=== PATIENT | female | born 1990 | race Caucasian/White ===

== ENCOUNTER 2016-10-12 15:12 | Emergency (ER) | payer MEDICAID, OTHER ==
[2016-10-12] MEDS ORDERED: MOTRIN 600 MG PO ONE (15:42)
[2016-10-12] MEDS ORDERED: MOTRIN 600 MG ONE (15:46)
--- NOTE | 2016-10-12 15:48 | ERPHSYRPT ---
- History of Present Illness Time Seen by Provider: 10/12/16 15:20 Source: patient, family Physician History: fell off porch injuring her left ankle and foot; no prior injury; no other complaints; right handed Method of Injury: fell, twisted Occurred: just prior to arrival Quality: constant, aching Severity of Pain-Max: severe Severity of Pain-Current: moderate Lower Extremities Pain: foot: left (dorsal latera), ankle: left (lateral) Modifying Factors: Improves With: cold therapy, immobilization, movement ( worsens) Associated Symptoms: unable to bear weight, snapping sensation Allergies/Adverse Reactions: amoxicillin Allergy (Mild, Verified 10/17/15 15:05) Rash Home Medications: [id number]/Omega3/Dha/Fish Oil [ Gummies] 2 each PO DAILY 10/17/15 [ History] Promethazine HCl 25 mg [Phenergan 25 mg] 25 mg PO Q6HPRN PRN 10/17/15 [ History] - Review of Systems Constitutional: No Symptoms Eyes: No Symptoms Ears, Nose, & Throat: No Symptoms Respiratory: No Cough, No Dyspnea, No Wheezing Cardiac: No Chest Pain, No Palpitations, No Syncope Abdominal/Gastrointestinal: No Abdominal Pain, No Nausea, No Vomiting, No Diarrhea Genitourinary Symptoms: No Symptoms Musculoskeletal: Fall, Injury, Joint Pain (left lateral ankle), Joint Swelling ( left ankle), Other (pain and swelling dorsal laterl lef foot ) Skin: No Symptoms Neurological: No Symptoms Psychological: No Symptoms Endocrine: No Symptoms Hematologic/Lymphatic: No Symptoms Immunological/Allergic: No Symptoms - Past Medical History Pertinent Past Medical History: No - Past Surgical History Past Surgical History: No - Social History Smoking Status: Current every day smoker Exposure to second hand smoke: Yes Alcohol Use: Socially Drug Use: none Patient Lives Alone: No Significant Family History: no pertinent family hx - Female History Hx Now: No - Nursing Vital Signs Nursing Vital Signs: Initial Vital Signs Temperature 98.3 F 10/12/16 15:13 Pulse Rate 68 10/12/16 15:13 Respiratory Rate 20 10/12/16 15:13 Blood Pressure 123/62 10/12/16 15:13 O2 Sat by Pulse Oximetry 95 10/12/16 15:13 Pain Scale Pain Intensity 6 - Physical Exam General Appearance: moderate distress (pain left ankle), alert, obese Eyes, Ears, Nose, Throat Exam: normal ENT inspection, TMs normal, pharynx normal , moist mucous membranes Neck Exam: normal inspection, non-tender, supple, full range of motion Cardiovascular/Respiratory Exam: chest non-tender, normal breath sounds, regular rate/rhythm, heart sounds normal, no ecchymosis, no JVD, no M/R/G, no respiratory distress Gastrointestinal/Abdominal Exam: non-tender, soft, no organomegaly Back Exam: normal inspection, normal range of motion, No CVA tenderness, No vertebral tenderness Hips Exam: bilateral: non-tender, normal inspection, normal range of motion, no evidence of injury Legs Exam: bilateral leg: non-tender, normal inspection, normal range of motion , no evidence of injury Knees Exam: bilateral knee: non-tender, normal inspection, normal range of motion, no evidence of injury Ankle Exam: right ankle: non-tender, normal inspection, normal range of motion, no evidence of injury, left ankle: bone tenderness (latral malleolus), limited range of motion, pain, soft tissue tenderness (lateral), swelling (lateral) Foot Exam: right foot: non-tender, normal inspection, normal range of motion, no evidence of injury, left foot: bone tenderness (dorsal latral), pain (dorsal latral), soft tissue tenderness (dorsal latral), swelling (dorsal latral) DTR - Lower Extremities Exam: knee (R): 4+, knee (L): 4+ Neuro/Tendon Exam: normal sensation, normal motor functions, normal tendon functions, responds to pain, no evidence tendon injury Mental Status Exam: alert, oriented x 3, cooperative Skin Exam: normal color, warm, dry, No rash Procedures - Splinting Location of Splint: Left, Ankle Type of Splint: Air Cast Splint Applied By: ED Nurse Pre-Proc Neuro Vasc Exam: normal Post-Proc Neuro Vasc Exam: neurovascular intact - Course Nursing assessment & vital signs reviewed: Yes - Radiology Exams Left Ankle X-ray Interpretation: Interpreted by me, Negative, No Fracture Left Foot X-ray Interpretation: Interpreted by me, Negative, No Fracture Ordered Tests: Active Orders 24 hr Category Date Time Status Crutches STAT Care 10/12/16 16:35 Ordered Re-Check Vital Signs STAT Care 10/12/16 15:42 Active Splint STAT Care 10/12/16 16:35 Ordered ANKLE (3 VIEWS) Stat Exams 10/12/16 15:42 Taken FOOT (MINIMUM 3 VIEWS) Stat Exams 10/12/16 15:42 Taken Medication Summary Discontinued Medications Generic Name Dose Route Start Last Admin Trade Name Shmuel PRN Reason Stop Dose Admin Ibuprofen 600 mg 10/12/16 15:42 10/12/16 15:55 Motrin 600 Mg PO 10/12/16 15:43 600 mg STAT ONE Administration Ibuprofen Confirm 10/12/16 15:46 Motrin 600 Mg Administered 10/12/16 15:47 Dose 600 mg .ROUTE .STK-MED ONE - Progress Progress: improved (after meds and xr), re-examined (after meds and xr) Progress Note: 10/12/16 15:52 xrr pending; meds and ice given; will recheck 10/12/16 16:36 recheck after meds and xr; discussed xr findings and treatment plan; air cast and crutches applies; no NV compromise after; instructions given Counseled pt/family regarding: diagnosis, need for follow-up, rad results, smoking cessation - Departure Time of Disposition: 16:37 Departure Disposition: Home Clinical Impression: Sprain of ankle, left Condition: Stable Critical Care Time: No Instructions: Foot Pain, Ankle Sprain Additional Instructions: RICE; use air cast and crutches for 2-3 days; no wt bearing 48 hours; Acute Sprain Instructions lower extremity; R.I.C.E.; wear splint/immobilyzer as directed; observe for neuro-vascular compromise ( change in color; increased pain; cold to touch); Use crutches, walker, cane as directed. FU LMD/ specialist as directed; call for appointment as directed; Return if problems; Take meds as prescribed. Follow-up with family doctor as directed. Call for appointment. Return if any problems. If you smoke please stop. Call or follow up with your family doctor for assistance if you need it to stop. Please wear your seatbelt when driving. Have a nice day. Thank you for allowing us to participate in your care today. :o) Dr Demetrius Lal Prescriptions: Naproxen Sodium [Anaprox Ds] 550 mg PO Q8H PRN PRN #14 tablet PRN Reason: Pain
[2016-10-12 16:27] VITALS: BP 110/46; PULSE 80; O2SAT 97
--- NOTE | 2016-10-12 17:02 | XRAY ---
Indication: Lateral pain following twisting injury. Comparison: None 3 views of the left ankle demonstrates minimal lateral soft tissue swelling. No other bony, articular, or soft tissue abnormalities.
--- NOTE | 2016-10-12 17:04 | XRAY ---
Indication: Lateral pain following twisting injury. Comparison: None 3 nonweightbearing views of the left foot demonstrates talonavicular accessory ossicle. No other bony, articular, or soft tissue abnormalities.
== END 2016-10-12 17:27 | disposition home or self-care (01) ==
LOC: ED 15:12
DX: S93.402A Sprain of unspecified ligament of left ankle, initial encounter (principal); W18.30XA Fall on same level, unspecified, initial encounter; X50.0XXA Overexertion from strenuous movement or load, initial encounter
CPT/HCPCS: 73610; 73630; 99282; 99283; A9270-GY

== ENCOUNTER 2016-10-30 08:06 | Emergency (ER) | payer OTHER ==
[2016-10-30] MEDS ORDERED: Hydromorphone 1 mg/ml Ampule IV ONE (08:26)
[2016-10-30] MEDS ORDERED: TORAdol 30 mg Injection IV ONE (08:26)
[2016-10-30] MEDS ORDERED: Sodium Chloride 0.9% 1000 ML 1,000 ML IV STA (08:26)
[2016-10-30] MEDS ORDERED: Phenergan 25 MG INJ IV ONE (08:26)
[2016-10-30] MEDS ORDERED: Flomax 0.4 MG PO STA (08:28)
--- NOTE | 2016-10-30 08:29 | ERPHSYRPT ---
- History of Present Illness Time Seen by Provider: 10/30/16 08:21 Source: patient Exam Limitations: no limitations Patient Subjective Stated Complaint: yesterday she bent over to orange picker baby and heard a pop and no has lower back that radiates to right side, no radiation to ext, is unale to void this morning, no bruning or fever Triage Nursing Assessment: pt walked in slowly,crying and grimacing, resp easy, skin w/d,no edema noted alert Physician History: The patient is a 26-year-old female who presents with left lower back and left flank pain. She had some mild discomfort that began 3 days ago in this area. Yesterday the pain became significantly worse when she picked up her infant. She's never had back pain before. She denies kidney stones. This morning her back pain is still intensely painful. She is unable to urinate. She denies nausea, vomiting, diarrhea. Her past medical history is significant for C- section. Timing/Duration: day(s) (3) Method of Injury: unknown Quality: stabbing Back Pain Location: lumbar spine Severity of Pain-Max: severe Severity of Pain-Current: severe Modifying Factors: Improves With: nothing Associated Symptoms: problems urinating Previous symptoms: no prior history Allergies/Adverse Reactions: amoxicillin Allergy (Mild, Verified 10/30/16 08:17) Rash Home Medications: No Reportable Medications [No Reported Medications] 10/30/16 [History] Hx Tetanus, Diphtheria Vaccination/Date Given: Yes Hx Influenza Vaccination/Date Given: Yes Hx Pneumococcal Vaccination/Date Given: No Immunizations Up to Date: Yes - Review of Systems Constitutional: No Fever, No Chills Eyes: No Symptoms Ears, Nose, & Throat: No Symptoms Respiratory: No Cough, No Dyspnea Cardiac: No Chest Pain, No Edema, No Syncope Abdominal/Gastrointestinal: No Abdominal Pain, No Nausea, No Vomiting, No Diarrhea Genitourinary Symptoms: Hesitancy Musculoskeletal: Back Pain, No Neck Pain Skin: No Rash Neurological: No Dizziness, No Focal Weakness, No Sensory Changes Psychological: No Symptoms Endocrine: No Symptoms Hematologic/Lymphatic: No Symptoms Immunological/Allergic: No Symptoms All Other Systems: Reviewed and Negative - Past Medical History Pertinent Past Medical History: No Neurological History: No Pertinent History ENT History: No Pertinent History Cardiac History: No Pertinent History Respiratory History: No Pertinent History Endocrine Medical History: No Pertinent History Musculoskeletal History: No Pertinent History, Fractures GI Medical History: No Pertinent History History: No Pertinent History Female Reproductive Disorders: No Pertinent History - Past Surgical History Past Surgical History: Yes Female Surgical History: Section - Social History Smoking Status: Current every day smoker How long have you smoked: 15 Exposure to second hand smoke: Yes Alcohol Use: Socially Drug Use: none Patient Lives Alone: No Significant Family History: no pertinent family hx - Female History Hx Last Menstrual Period: september Hx Now: No - Nursing Vital Signs Nursing Vital Signs: Initial Vital Signs Temperature 98.2 F 10/30/16 08:11 Respiratory Rate 18 10/30/16 08:11 Blood Pressure 147/79 10/30/16 08:11 O2 Sat by Pulse Oximetry 94 L 10/30/16 08:11 Pain Scale Pain Intensity [Back] 10 Pain Intensity 6 - Physical Exam General Appearance: moderate distress, other (tearful) Eye Exam: PERRL/EOMI, eyes nml inspection Ears, Nose, Throat Exam: normal ENT inspection Neck Exam: normal inspection, non-tender, supple, full range of motion, No meningismus, No midline tenderness Respiratory Exam: normal breath sounds, lungs clear, No respiratory distress Cardiovascular Exam: regular rate/rhythm, normal heart sounds Gastrointestinal Exam: soft, No tenderness, No mass Pelvic Exam: not done Rectal Exam: not done Back Exam: CVA tenderness (left) Extremity Exam: normal inspection, normal range of motion, No calf tenderness, No pedal edema Neurologic Exam: alert, oriented x 3, cooperative, baseball pitcher II-XII nml as tested, normal mood/affect, nml station & gait, sensation nml, No motor deficits Skin Exam: normal color, warm, dry, No rash SpO2 Interpretation: normal SpO2: 94 Oxygen Delivery: Room Air - CT Exams Abdomen/Pelvis CT Interpretation: Tele-radiologist Report, No appendicitis, Other (scatteredf small mesenteric nodes, possible adenitis per DR Field.) Ordered Tests: Active Orders 24 hr Category Date Time Status IV Insertion STAT Care 10/30/16 08:26 Active ABDOMEN AND PELVIS W/0 CONTRAS [CT] Stat Exams 10/30/16 10:06 Completed CBC W DIFF Stat Lab 10/30/16 08:10 Completed CMP Stat Lab 10/30/16 08:10 Completed CULTURE,URINE Stat Lab 10/30/16 09:25 Received HCG QUALITATIVE,SERUM Stat Lab 10/30/16 08:10 Completed LIPASE Stat Lab 10/30/16 08:10 Completed UA W/ MICROSCOPIC Stat Lab 10/30/16 09:25 Completed Urine Triage Profile Stat Lab 10/30/16 08:26 Completed Medication Summary Discontinued Medications Generic Name Dose Route Start Last Admin Trade Name Shmuel PRN Reason Stop Dose Admin Hydromorphone HCl 1 mg 10/30/16 08:26 10/30/16 08:37 Hydromorphone 1 Mg/Ml Ampule IV 10/30/16 08:27 1 mg STAT ONE Administration Hydromorphone HCl Confirm 10/30/16 08:32 Hydromorphone 1 Mg/Ml Ampule Administered 10/30/16 08:33 Dose 1 mg .ROUTE .STK-MED ONE Sodium Chloride 1,000 mls @ 999 mls/hr 10/30/16 08:26 10/30/16 08:33 Sodium Chloride 0.9% 1000 Ml IV 10/30/16 09:26 999 mls/hr .Q1H1M STA Administration Sodium Chloride Confirm 10/30/16 08:32 Sodium Chloride 0.9% 1000 Ml Administered 10/30/16 08:33 Dose 1,000 mls @ ud .ROUTE .STK-MED ONE Ketorolac Tromethamine 30 mg 10/30/16 08:26 10/30/16 08:36 Toradol 30 Mg Injection IV 10/30/16 08:27 30 mg STAT ONE Administration Ketorolac Tromethamine Confirm 10/30/16 08:31 Toradol 30 Mg Injection Administered 10/30/16 08:32 Dose 30 mg .ROUTE .STK-MED ONE Promethazine HCl 25 mg 10/30/16 08:26 10/30/16 08:36 Phenergan 25 Mg Inj IV 10/30/16 08:27 25 mg STAT ONE Administration Promethazine HCl Confirm 10/30/16 08:31 Phenergan 25 Mg Inj Administered 10/30/16 08:32 Dose 25 mg .ROUTE .STK-MED ONE Tamsulosin HCl 0.4 mg 10/30/16 08:28 10/30/16 08:33 Flomax 0.4 Mg PO 10/30/16 08:29 0.4 mg DAILY STA Administration Tamsulosin HCl Confirm 10/30/16 08:31 Flomax 0.4 Mg Administered 10/30/16 08:32 Dose 0.4 mg .ROUTE .K-MED ONE Lab/Rad Data: Laboratory Result Diagrams 10/30/16 08:10 10/30/16 08:10 Laboratory Results 10/30/16 10/30/16 10/30/16 Range/Units 09:25 08:26 08:10 WBC (4.0-10.5) K/mm3 RBC (4.1-5.4) M/mm3 Hgb (12.0-16.0) gm/dl Hct (35-47) % MCV (78-100) fl MCH (26-32) pg MCHC (32-36) g/dl RDW (11.5-14.0) % Plt Count (150-450) K/mm3 MPV (6-9.5) fl Gran % (36.0-66.0) % Lymphocytes % (24.0-44.0) % Monocytes % (0.0-12.0) % Eosinophils % (0.00-5.0) % Basophils % (0.0-0.4) % Basophils # (0-0.4) Sodium (136-145) mEq/L Potassium (3.5-5.1) mEq/L Chloride (98-107) mEq/L Carbon Dioxide (21-32) mEq/L Anion Gap (5-15) MEQ/L BUN (9-20) mg/dL Creatinine (0.55-1.30) mg/dl Estimated GFR ML/MIN Glucose (70-110) MG/DL Calcium (8.5-10.1) mg/dL Total Bilirubin (0.2-1.0) mg/dL AST (15-37) U/L ALT (12-78) U/L Alkaline Phosphatase (46-116) U/L Serum Total Protein (6.4-8.2) gm/dL Albumin (3.4-5.0) g/dL Lipase (73-393) U/L Serum , Qual NEGATIVE (Negative) Ur Collection Type VOID Urine Color YELLOW (YELLOW) Urine Appearance HAZY (CLEAR) Urine pH 5.0 (5-6) Ur Specific [place] 1.010 (1.005-1.025) Urine Protein NEGATIVE (Negative) Urine Ketones NEGATIVE (NEGATIVE) Urine Blood NEGATIVE (0-5) [place]/ul Urine Nitrite NEGATIVE (NEGATIVE) Urine Bilirubin NEGATIVE (NEGATIVE) Urine Urobilinogen NORMAL (0-1) mg/dL Ur Leukocyte Esterase 1+ (NEGATIVE) Urine Microscopic WBC 5-10 (0-5) /HPF Ur Epithelial Cells MANY (FEW) /HPF Urine Bacteria MODERATE (NEGATIVE) /HPF Urine Glucose NEGATIVE (NEGATIVE) mg/dL Urine Opiates Level NEG. (NEGATIVE) Ur Methadone NEG. (NEGATIVE) Urine Barbiturates NEG. (NEGATIVE) Ur Phencyclidine (PCP) NEG. (NEGATIVE) Urine Amphetamine NEG. (NEGATIVE) U Benzodiazepine Level NEG. (NEGATIVE) Urine Cocaine NEG. (NEGATIVE) Urine Marijuana (THC) NEG. (NEGATIVE) Specimen Received 10/30/16 0910/30/16 10/30/16 Range/Units 08:10 08:10 WBC 9.8 (4.0-10.5) K/mm3 RBC 4.93 (4.1-5.4) M/mm3 Hgb 14.5 (12.0-16.0) gm/dl Hct 43.2 (35-47) % MCV 87.6 (78-100) fl MCH 29.4 (26-32) pg MCHC 33.6 (32-36) g/dl RDW 13.8 (11.5-14.0) % Plt Count 326 (150-450) K/mm3 MPV 9.6 H (6-9.5) fl Gran % 54.6 (36.0-66.0) % Lymphocytes % 36.4 (24.0-44.0) % Monocytes % 7.4 (0.0-12.0) % Eosinophils % 1.4 (0.00-5.0) % Basophils % 0.2 (0.0-0.4) % Basophils # 0.02 (0-0.4) Sodium 138 (136-145) mEq/L Potassium 4.0 (3.5-5.1) mEq/L Chloride 106 (98-107) mEq/L Carbon Dioxide 21.7 (21-32) mEq/L Anion Gap 14.7 (5-15) MEQ/L BUN 13 (9-20) mg/dL Creatinine 0.89 (0.55-1.30) mg/dl Estimated GFR > 60 ML/MIN Glucose 105 (70-110) MG/DL Calcium 8.7 (8.5-10.1) mg/dL Total Bilirubin 0.30 (0.2-1.0) mg/dL AST 25 (15-37) U/L ALT 55 (12-78) U/L Alkaline Phosphatase 37 L (46-116) U/L Serum Total Protein 7.6 (6.4-8.2) gm/dL Albumin 3.8 (3.4-5.0) g/dL Lipase 422 H (73-393) U/L Serum , Qual (Negative) Ur Collection Type Urine Color (YELLOW) Urine Appearance (CLEAR) Urine pH (5-6) Ur Specific [place] (1.005-1.025) Urine Protein (Negative) Urine Ketones (NEGATIVE) Urine Blood (0-5) [place]/ul Urine Nitrite (NEGATIVE) Urine Bilirubin (NEGATIVE) Urine Urobilinogen (0-1) mg/dL Ur Leukocyte Esterase (NEGATIVE) Urine Microscopic WBC (0-5) /HPF Ur Epithelial Cells (FEW) /HPF Urine Bacteria (NEGATIVE) /HPF Urine Glucose (NEGATIVE) mg/dL Urine Opiates Level (NEGATIVE) Ur Methadone (NEGATIVE) Urine Barbiturates (NEGATIVE) Ur Phencyclidine (PCP) (NEGATIVE) Urine Amphetamine (NEGATIVE) U Benzodiazepine Level (NEGATIVE) Urine Cocaine (NEGATIVE) Urine Marijuana (THC) (NEGATIVE) Specimen Received - Progress Progress: improved Counseled pt/family regarding: lab results, diagnosis, rad results - Departure Time of Disposition: 11:43 Departure Disposition: Home Clinical Impression: Abdominal pain, Lymphadenitis Condition: Stable Critical Care Time: No Additional Instructions: You have abdominal pain. A CT scan of the abdomen showed some small enlarged mesenteric lymph nodes. Laboratory results showed a mildly elevated lipase that may indicate mild pancreatitis. You were given Dilaudid 1 mg, Toradol 30 mg, Phenergan 25 mg, and fluids by IV in the ER. You are also given Flomax 0.4 mg. Over the next 1-2 days, consume only liquids for a diet. Then slowly advance the diet. If you have worsening abdominal pain, do not hesitate to see her local doctor or return to the ER. Take Tylenol and ibuprofen for pain.
[2016-10-30] MEDS ORDERED: Phenergan 25 MG INJ ONE (08:31)
[2016-10-30] MEDS ORDERED: TORAdol 30 mg Injection ONE (08:31)
[2016-10-30] MEDS ORDERED: Flomax 0.4 MG ONE (08:31)
[2016-10-30] MEDS ORDERED: Sodium Chloride 0.9% 1000 ML 1,000 ML ONE (08:32)
[2016-10-30] MEDS ORDERED: Hydromorphone 1 mg/ml Ampule ONE (08:32)
[2016-10-30 08:49] LABS: BASOPHIL % 0.2 % (0.0-0.4); Eosinophil % 1.4 % (0.00-5.0); Granulocytes % 54.6 % (36.0-66.0); Lymphocytes % 36.4 % (24.0-44.0); Mean Cell Volume 87.6 fl (78-100); Mean Corpuscular Hemoglobin 29.4 pg (26-32); Mean Platelet Volume 9.6 fl (6-9.5); Monocytes % 7.4 % (0.0-12.0); Platelet Count 326 K/mm3 (150-450); Red Blood Count 4.93 M/mm3 (4.1-5.4); Red Cell Distribution Width 13.8 % (11.5-14.0); White Blood Count 9.8 K/mm3 (4.0-10.5)
[2016-10-30 09:14] LABS: ALBUMIN 3.8 g/dL (3.4-5.0); ALKALINE PHOSPHATASE 37 U/L (46-116); ANION GAP 14.7 MEQ/L (5-15); BLOOD UREA NITROGEN 13 mg/dL (9-20); CHLORIDE 106 mEq/L (98-107); Carbon Dioxide 21.7 mEq/L (21-32); Glucose 105 MG/DL (70-110); LIPASE 422 U/L (73-393); SGOT/AST 25 U/L (15-37); SGPT/ALT 55 U/L (12-78); SODIUM 138 mEq/L (136-145); Total Protein 7.6 gm/dL (6.4-8.2)
[2016-10-30 09:48] LABS: ADD URINE CULTURE? YES (NO); Bacteria MODERATE /HPF (NEGATIVE); Bilirubin NEGATIVE (NEGATIVE); Blood NEGATIVE Ery/ul (0-5); COMPLETE URINE MICROSCOPIC? YES; Collection Type VOID; Epithelial Cells MANY /HPF (FEW); Glucose NEGATIVE (NEGATIVE); Leukocyte Esterase 1+ (NEGATIVE)
--- NOTE | 2016-10-30 10:37 | XRAY ---
Indication: Bilateral kidney pain. Multiple contiguous axial images obtained through the abdomen and pelvis without contrast as ordered. Comparison: None Lung bases demonstrates mild bibasilar dependent atelectasis. Heart is not enlarged. Small hiatal hernia. Noncontrasted stomach and bowel loops appear nonobstructed. Normal appendix. No free fluid/air. Scattered subcentimeter mesenteric nodes, possible adenitis. Remaining liver, gallbladder, pancreas, spleen, adrenal glands, kidneys, ureters, bladder, uterus, and aorta appear unremarkable for noncontrast exam. Osseous structures intact. Impression: Small hiatal hernia. Scattered small mesenteric nodes, possible adenitis. Remaining CT abdomen/pelvis without contrast exam is negative. CT DI 23.26
[2016-10-30 12:32] VITALS: BP 98/69; PULSE 70; O2SAT 98
== END 2016-10-30 12:10 | disposition home or self-care (01) ==
LOC: ED 08:06
DX: R10.9 Unspecified abdominal pain (principal); I88.9 Nonspecific lymphadenitis, unspecified; M54.5 Low back pain
CPT/HCPCS: 36000; 36415; 74176; 80053; 80307; 81000; 83690; 84703; 85025; 87086; 96360; 96361; 96374; 96375; 99284; J1170; J1885; J2550; A9270-GY

== ENCOUNTER 2017-11-23 20:53 | Emergency (ER) | payer OTHER ==
--- NOTE | 2017-11-23 21:28 | ERPHSYRPT ---
- History of Present Illness Time Seen by Provider: 11/23/17 21:10 Source: patient Exam Limitations: no limitations Patient Subjective Stated Complaint: pain in lower medial back that feels like fire Triage Nursing Assessment: Pt c/o of pain in lower medial back that feels like fire when touched and occasional radiation to bilateral sides, pain with movement, no difficulties with strength, denies any numbness or tingling, BP 149 /103, denies any injury, appears to be in significant pain Physician History: 27 y/o obese white female presents with lumbar back pain described as sharp and burning. very localized. pt denies injury. pt has not had a lmp in last month or two but tests have been negative. pt denies loss of sensation denies loss of bowel or bladder control. no radiation of pain. Timing/Duration: week(s) (over 4 weeks) Method of Injury: other (no injury) Back Pain Location: lumbar spine Severity of Pain-Max: moderate Severity of Pain-Current: moderate (whien pressing) Associated Symptoms: lower back pain, No fever, No chills, No nausea, No vomiting Previous symptoms: same symptoms as today Allergies/Adverse Reactions: amoxicillin Allergy (Mild, Verified 11/23/17 21:15) Rash Hx Tetanus, Diphtheria Vaccination/Date Given: Yes Hx Influenza Vaccination/Date Given: Yes Hx Pneumococcal Vaccination/Date Given: No - Review of Systems Constitutional: No Symptoms, No Fever, No Chills Eyes: No Symptoms, No Eye Pain Ears, Nose, & Throat: No Symptoms, No Ear Pain Respiratory: No Symptoms, No Cough, No Dyspnea, No Stridor, No Wheezing Cardiac: No Symptoms, No Chest Pain Abdominal/Gastrointestinal: No Symptoms, No Abdominal Pain, No Nausea, No Vomiting, No Diarrhea Genitourinary Symptoms: No Symptoms, No Dysuria, No Frequency, No Hematuria Musculoskeletal: Back Pain, No Deformity, No Injury Skin: No Symptoms Neurological: Gait Changes, No Paralysis, No Parasthesia Psychological: No Symptoms Endocrine: No Symptoms Hematologic/Lymphatic: No Symptoms Immunological/Allergic: No Symptoms All Other Systems: Reviewed and Negative - Past Medical History Pertinent Past Medical History: No Neurological History: No Pertinent History ENT History: No Pertinent History Cardiac History: No Pertinent History Respiratory History: No Pertinent History Endocrine Medical History: No Pertinent History Musculoskeletal History: No Pertinent History, Fractures GI Medical History: No Pertinent History History: No Pertinent History Psycho-Social History: No Pertinent History Female Reproductive Disorders: No Pertinent History - Past Surgical History Past Surgical History: Yes Female Surgical History: Section - Social History Smoking Status: Current every day smoker How long have you smoked: 15 Exposure to second hand smoke: Yes Alcohol Use: Socially Drug Use: none Patient Lives Alone: No Significant Family History: no pertinent family hx - Female History Hx Last Menstrual Period: 10/06/2017 Hx Now: (unsure) - Nursing Vital Signs Nursing Vital Signs: Initial Vital Signs Temperature 98.2 F 11/23/17 21:01 Pulse Rate 89 11/23/17 21:01 Blood Pressure 149/103 11/23/17 21:01 O2 Sat by Pulse Oximetry 96 11/23/17 21:01 Pain Scale Pain Intensity 8 - Physical Exam General Appearance: mild distress, alert, anxiety Eye Exam: PERRL/EOMI, eyes nml inspection Ears, Nose, Throat Exam: normal ENT inspection Neck Exam: normal inspection, non-tender, supple, full range of motion Respiratory Exam: normal breath sounds, lungs clear, airway intact, No chest tenderness, No respiratory distress Cardiovascular Exam: regular rate/rhythm, normal heart sounds, normal peripheral pulses Gastrointestinal Exam: soft, normal bowel sounds, No tenderness, No guarding, No rebound Pelvic Exam: not done Back Exam: normal inspection, vertebral tenderness, decreased range of motion, point tenderness (localized upper lumbar) Extremity Exam: normal inspection, normal range of motion, pelvis stable Neurologic Exam: alert, oriented x 3, cooperative, projection engineer II-XII nml as tested, No motor deficits, No sensory deficit, No disoriented, No confusion Skin Exam: normal color, warm, dry Lymphatic Exam: No adenopathy SpO2 Interpretation: normal SpO2: 96 Oxygen Delivery: Room Air - Course Nursing assessment & vital signs reviewed: Yes - Progress Progress: improved - Departure Departure Disposition: Home Clinical Impression: Back pain Condition: Stable Critical Care Time: No Referrals: CHRISTINA WOO MD [Primary Care Provider] - Additional Instructions: follow up with primary doctor for further management. take medications as prescribed. add tylenol for pain Prescriptions: Carisoprodol 350 mg [Soma 350 mg] 350 mg PO Q8H PRN PRN #10 tablet PRN Reason: Muscle Spasms Prednisone 10 mg [Deltasone 10 mg] 10 mg PO TID #12 tablet Tramadol HCl 50 mg [Ultram 50 mg] 50 mg PO TID PRN #15 tablet PRN Reason: Moderate Pain
[2017-11-23] MEDS ORDERED: VALIUM 10 MG/2 ML SYRINGE IM ONE (21:40)
[2017-11-23] MEDS ORDERED: solu-MEDROL 125 MG IM ONE (21:40)
[2017-11-23] MEDS ORDERED: solu-MEDROL 125 MG ONE (21:48)
[2017-11-23] MEDS ORDERED: Ativan 2 MG/1 ML VIAL ONE (21:58)
[2017-11-23] MEDS ORDERED: Ativan 2 MG/1 ML VIAL IM ONE (22:20)
[2017-11-23 22:21] LABS: Appearance CLEAR (CLEAR); Bilirubin NEGATIVE (NEGATIVE); Blood NEGATIVE Ery/ul (0-5); Glucose NEGATIVE (NEGATIVE); Ketones NEGATIVE (NEGATIVE); Leukocyte Esterase NEGATIVE (NEGATIVE); Nitrite NEGATIVE (NEGATIVE); Ph 7.5 (5-6); Protein,Urine Dip NEGATIVE (Negative); Specific Gravity 1.015 (1.005-1.025); Urobilinogen NORMAL mg/dL (0-1)
[2017-11-23 22:31] VITALS: BP 136/88; PULSE 72; O2SAT 97
== END 2017-11-23 22:31 | disposition home or self-care (01) ==
LOC: ED 20:53
DX: M54.5 Low back pain (principal)
CPT/HCPCS: 81002; 84703; 96372; 99284; J2060; J2930

== ENCOUNTER 2018-03-23 23:25 | Emergency (ER) | payer MEDICAID, OTHER ==
--- NOTE | 2018-03-23 23:50 | ERPHSYRPT ---
- History of Present Illness Time Seen by Provider: 03/23/18 23:45 Source: patient, family Patient Subjective Stated Complaint: pt is alert and oriented. pt is ambulatory. pt states she took a test tonight that came back positive. she states that she has had some lower pelvic cramping and had a small amount of pink spotting this morning. Triage Nursing Assessment: see above Physician History: 27 y/o white female, who admittedly has abnl menstrual periods, presents with a h/o no menstrual period for 2 months. pt had some light, resolved spotting this am and mild suprapubic cramping this evening. no n/v/d. pt took several tests and they were positive. Timing/Duration: today Activites at Onset: none Quality: cramping (mild) Onset Location: suprapubic Pain Radiation: none Severity of Pain-Max: mild Severity of Pain-Current: mild Modifying Factors: Improves With: nothing Associated Symptoms: vaginal discharge (earlier this am) Allergies/Adverse Reactions: amoxicillin Allergy (Mild, Verified 11/23/17 21:15) Rash Hx Tetanus, Diphtheria Vaccination/Date Given: Yes Hx Influenza Vaccination/Date Given: No Hx Pneumococcal Vaccination/Date Given: No - Review of Systems Constitutional: No Symptoms Eyes: No Symptoms Ears, Nose, & Throat: No Symptoms Respiratory: No Symptoms Cardiac: No Symptoms Abdominal/Gastrointestinal: Abdominal Pain (mild suprapubic cramping) Genitourinary Symptoms: Vaginal Bleeding (light pink, resolved) Musculoskeletal: No Symptoms Skin: No Symptoms Neurological: No Symptoms Psychological: No Symptoms Endocrine: No Symptoms Hematologic/Lymphatic: No Symptoms Immunological/Allergic: No Symptoms All Other Systems: Reviewed and Negative - Past Medical History Pertinent Past Medical History: No Neurological History: No Pertinent History ENT History: No Pertinent History Cardiac History: No Pertinent History Respiratory History: No Pertinent History Endocrine Medical History: No Pertinent History Musculoskeletal History: No Pertinent History, Fractures GI Medical History: No Pertinent History History: No Pertinent History Psycho-Social History: No Pertinent History Female Reproductive Disorders: No Pertinent History Other Medical History: preeclampsia - Past Surgical History Past Surgical History: Yes Neuro Surgical History: No Pertinent History Cardiac: No Pertinent History Respiratory: No Pertinent History Gastrointestinal: No Pertinent History Genitourinary: No Pertinent History Musculoskeletal: No Pertinent History Female Surgical History: Section - Social History Smoking Status: Current every day smoker How long have you smoked: 16 years Exposure to second hand smoke: Yes Alcohol Use: Socially Drug Use: none Patient Lives Alone: No Significant Family History: no pertinent family hx - Female History Hx Last Menstrual Period: 01/21/18 Hx Now: Yes - Nursing Vital Signs Nursing Vital Signs: Initial Vital Signs Temperature 98.4 F 03/23/18 23:34 Pulse Rate 92 H 03/23/18 23:34 Respiratory Rate 16 03/23/18 23:34 Blood Pressure 125/92 03/23/18 23:34 O2 Sat by Pulse Oximetry 97 03/23/18 23:34 Pain Scale Pain Intensity 5 - Physical Exam General Appearance: no apparent distress, alert, anxiety Eye Exam: PERRL/EOMI, eyes nml inspection Ears, Nose, Throat Exam: normal ENT inspection, moist mucous membranes Neck Exam: normal inspection, non-tender, supple, full range of motion Respiratory Exam: normal breath sounds, lungs clear, airway intact, No chest tenderness, No respiratory distress, No accessory muscle use, No rhonchi, No wheezing, No stridor Cardiovascular Exam: regular rate/rhythm, normal heart sounds, normal peripheral pulses Gastrointestinal/Abdomen Exam: soft, normal bowel sounds (no sig pain at this time), No tenderness, No guarding, No rebound Pelvic Exam: adnexal mass Rectal Exam: not done Back Exam: normal inspection, normal range of motion, No CVA tenderness, No vertebral tenderness Extremity Exam: normal inspection, normal range of motion, pelvis stable Neurologic Exam: alert, oriented x 3, cooperative, import manager II-XII nml as tested Skin Exam: normal color, warm, dry Lymphatic Exam: No adenopathy SpO2 Interpretation: normal SpO2: 97 Oxygen Delivery: Room Air - Course Nursing assessment & vital signs reviewed: Yes Ordered Tests: Active Orders 24 hr Category Date Time Status CBC W DIFF Stat Lab 03/23/18 00:07 Completed HCG, Quantitative (Inhouse) Stat Lab 03/23/18 00:07 Completed HCG,QUALITATIVE URINE Stat Lab 03/23/18 00:00 Completed UA W/RFX UR CULTURE Stat Lab 03/23/18 00:00 Completed Lab/Rad Data: Laboratory Result Diagrams 03/23/18 00:07 Laboratory Results 03/23/18 03/23/18 03/23/18 Range/Units 00:07 00:07 00:00 WBC 13.6 H (4.0-10.5) K/mm3 RBC 4.67 (4.1-5.4) M/mm3 Hgb 14.5 (12.0-16.0) gm/dl Hct 42.6 (35-47) % MCV 91.2 (78-100) fl MCH 31.0 (26-32) pg MCHC 34.0 (32-36) g/dl RDW 13.3 (11.5-14.0) % Plt Count 331 (150-450) K/mm3 MPV 8.9 (6-9.5) fl Gran % 57.1 (36.0-66.0) % Eos # (Auto) 0.13 (0-0.5) Absolute Lymphs (auto) 4.70 H (1.0-4.6) Absolute Monos (auto) 0.98 (0.0-1.3) Lymphocytes % 34.5 (24.0-44.0) % Monocytes % 7.2 (0.0-12.0) % Eosinophils % 1.0 (0.00-5.0) % Basophils % 0.2 (0.0-0.4) % Absolute Granulocytes 7.79 H (1.4-6.9) Basophils # 0.03 (0-0.4) Beta HCG, Quant 9356.0 mIU/ml Urine Color YELLOW (YELLOW) Urine Appearance SLIGHTLY CLOUDY (CLEAR) Urine pH 6.0 (5-6) Ur Specific [place] 1.027 (1.005-1.025) Urine Protein NEGATIVE (Negative) Urine Ketones TRACE (NEGATIVE) Urine Blood NEGATIVE (0-5) [place]/ul Urine Nitrite NEGATIVE (NEGATIVE) Urine Bilirubin NEGATIVE (NEGATIVE) Urine Urobilinogen NEGATIVE (0-1) mg/dL Ur Leukocyte Esterase NEGATIVE (NEGATIVE) Urine WBC (Auto) 0-2 (0-5) /HPF Urine RBC (Auto) 0-2 (0-2) /HPF U Epithel Cells (Auto) RARE (FEW) /HPF Urine Bacteria (Auto) RARE (NEGATIVE) /HPF Urine Mucus (Auto) SLIGHT (NEGATIVE) /HPF Urine Culture Reflexed NO (NO) Urine Glucose NEGATIVE (NEGATIVE) mg/dL Urine HCG, Qual (Negative) 03/23/18 Range/Units 00:00 WBC (4.0-10.5) K/mm3 RBC (4.1-5.4) M/mm3 Hgb (12.0-16.0) gm/dl Hct (35-47) % MCV (78-100) fl MCH (26-32) pg MCHC (32-36) g/dl RDW (11.5-14.0) % Plt Count (150-450) K/mm3 MPV (6-9.5) fl Gran % (36.0-66.0) % Eos # (Auto) (0-0.5) Absolute Lymphs (auto) (1.0-4.6) Absolute Monos (auto) (0.0-1.3) Lymphocytes % (24.0-44.0) % Monocytes % (0.0-12.0) % Eosinophils % (0.00-5.0) % Basophils % (0.0-0.4) % Absolute Granulocytes (1.4-6.9) Basophils # (0-0.4) Beta HCG, Quant mIU/ml Urine Color (YELLOW) Urine Appearance (CLEAR) Urine pH (5-6) Ur Specific [place] (1.005-1.025) Urine Protein (Negative) Urine Ketones (NEGATIVE) Urine Blood (0-5) [place]/ul Urine Nitrite (NEGATIVE) Urine Bilirubin (NEGATIVE) Urine Urobilinogen (0-1) mg/dL Ur Leukocyte Esterase (NEGATIVE) Urine WBC (Auto) (0-5) /HPF Urine RBC (Auto) (0-2) /HPF U Epithel Cells (Auto) (FEW) /HPF Urine Bacteria (Auto) (NEGATIVE) /HPF Urine Mucus (Auto) (NEGATIVE) /HPF Urine Culture Reflexed (NO) Urine Glucose (NEGATIVE) mg/dL Urine HCG, Qual POSITIVE (Negative) - Progress Progress: unchanged Air Movement: good Blood Culture(s) Obtained: No Antibiotics given: No Counseled pt/family regarding: lab results, diagnosis, need for follow-up - Departure Time of Disposition: 00:50 Departure Disposition: Home Clinical Impression: Condition: Stable Critical Care Time: No Referrals: CHRISTINA WOO MD [Primary Care Provider] - Additional Instructions: drink plenty of fluids. follow up with primary doctor/glass products inspector for further management
[2018-03-24 00:09] LABS: BASOPHIL % 0.2 % (0.0-0.4); Basophil (Absolute #) 0.03 (0-0.4); Eosinophil (Absolute #) 0.13 (0-0.5); Granulocyte Absolute (ANC) 7.79 (1.4-6.9); Granulocytes % 57.1 % (36.0-66.0); Hematocrit 42.6 % (35-47); Hemoglobin 14.5 gm/dl (12.0-16.0); Lymphocytes % 34.5 % (24.0-44.0); Mean Cell Volume 91.2 fl (78-100); Mean Platelet Volume 8.9 fl (6-9.5); Monocyte (Absolute #) 0.98 (0.0-1.3); Monocytes % 7.2 % (0.0-12.0); Platelet Count 331 K/mm3 (150-450); Red Blood Count 4.67 M/mm3 (4.1-5.4); Red Cell Distribution Width 13.3 % (11.5-14.0); White Blood Count 13.6 K/mm3 (4.0-10.5)
[2018-03-24 00:41] LABS: Appearance SLIGHTLY CLOUDY (CLEAR); Bilirubin NEGATIVE (NEGATIVE); Blood NEGATIVE Ery/ul (0-5); Glucose NEGATIVE (NEGATIVE); Ketones TRACE (NEGATIVE); Leukocyte Esterase NEGATIVE (NEGATIVE); Nitrite NEGATIVE (NEGATIVE); Protein,Urine Dip NEGATIVE (Negative); Specific Gravity 1.027 (1.005-1.025); Urobilinogen NEGATIVE mg/dL (0-1)
[2018-03-24 01:11] VITALS: BP 141/77; PULSE 80; O2SAT 99
== END 2018-03-24 01:10 | disposition home or self-care (01) ==
LOC: ED 23:25
DX: O26.899 Other specified pregnancy related conditions, unspecified trimester (principal); R10.9 Unspecified abdominal pain
CPT/HCPCS: 36415; 81001; 84702; 84703; 85025; 99283

== ENCOUNTER 2018-04-22 18:43 | Emergency (ER) | payer MEDICAID ==
[2018-04-22] MEDS ORDERED: Sodium Chloride 0.9% 1000 ML 1,000 ML IV STA (19:14)
[2018-04-22] MEDS ORDERED: Sodium Chloride 0.9% 1000 ML 1,000 ML ONE (19:22)
[2018-04-22 19:52] LABS: BASOPHIL % 0.2 % (0.0-0.4); Basophil (Absolute #) 0.02 (0-0.4); Eosinophil (Absolute #) 0.12 (0-0.5); Granulocyte Absolute (ANC) 7.59 (1.4-6.9); Granulocytes % 62.2 % (36.0-66.0); Hematocrit 40.8 % (35-47); Hemoglobin 13.9 gm/dl (12.0-16.0); Lymphocyte (Absolute #) 3.59 (1.0-4.6); Lymphocytes % 29.5 % (24.0-44.0); Mean Cell Volume 91.5 fl (78-100); Mean Corpuscular Hemoglobin 31.2 pg (26-32); Mean Corpuscular Hgb Concent. 34.1 g/dl (32-36); Mean Platelet Volume 9.4 fl (6-9.5); Monocyte (Absolute #) 0.86 (0.0-1.3); Monocytes % 7.1 % (0.0-12.0); Platelet Count 298 K/mm3 (150-450); Red Blood Count 4.46 M/mm3 (4.1-5.4); Red Cell Distribution Width 13.6 % (11.5-14.0); White Blood Count 12.2 K/mm3 (4.0-10.5)
[2018-04-22 19:54] LABS: Appearance CLOUDY (CLEAR); Bacteria RARE /HPF (NEGATIVE); Bilirubin NEGATIVE (NEGATIVE); Blood NEGATIVE Ery/ul (0-5); Epithelial Cells MODERATE /HPF (FEW); Glucose NEGATIVE (NEGATIVE); Ketones NEGATIVE (NEGATIVE); Leukocyte Esterase NEGATIVE (NEGATIVE); Mucus SLIGHT /HPF (NEGATIVE); Nitrite NEGATIVE (NEGATIVE); Protein,Urine Dip NEGATIVE (Negative); Specific Gravity 1.021 (1.005-1.025); Urobilinogen NEGATIVE mg/dL (0-1)
[2018-04-22 19:56] LABS: ALKALINE PHOSPHATASE 30 U/L (38-126); AMYLASE 64 U/L (30-110); ANION GAP 13.2 MEQ/L (5-15); BLOOD UREA NITROGEN 10 mg/dL (7-17); CHLORIDE 103 mmol/L (98-107); Calcium 9.2 mg/dL (8.4-10.2); Carbon Dioxide 24 mmol/L (22-30); Creatinine 1 0.53 mg/dL (0.52-1.04); Glucose 98 mg/dL (74-106); LIPASE 112 U/L (23-300); Potassium 3.5 mmol/L (3.5-5.1); SGOT/AST 18 U/L (14-36); SGPT/ALT 33 U/L (0-35); SODIUM 136 mmol/L (137-145); Total Protein 7.3 g/dL (6.3-8.2)
--- NOTE | 2018-04-22 21:25 | ERPHSYRPT ---
- History of Present Illness Historian: patient Exam Limitations: no limitations Patient Subjective Stated Complaint: PT STATES I STARTED VOMITING THIS MORNING, APPROX 11-12 X IN LAST 8 HOURS. DENIES FEVER, DENIES CHANGES IN BM. PT STATES SHE IS 17 WEEKS AND HAS BEEN ALSO HAVING LOWER ABD AND BACK PAIN Triage Nursing Assessment: PINK/WARM/DRY, RESP EASY, A&OX4, STEADY GAIT, NO DISTRESS NOTED AT THIS TIME. Physician History: Pt is a 27 y/o female that presented to the ED, secondary to N/V and abdominal pain. Pt is , and stated, was vomiting so much today, and was not able to have anything PO, and presented to the ED. Pt denies F/C/S. No dysuria, frequency or urgency. No SOB or cough. Timing/Duration: today Activities at Onset: none Quality: pressure Abdominal Pain Onset Location: other (lower abdomen and lower back) Pain Radiation: back Severity of Pain-Max: mild Severity of Pain-Current: mild Modifying Factors: Improves With: nothing Associated Symptoms: vomiting Allergies/Adverse Reactions: amoxicillin Allergy (Mild, Verified 04/22/18 19:04) Rash latex Allergy (Mild, Verified 04/22/18 19:05) Hx Tetanus, Diphtheria Vaccination/Date Given: Yes Hx Influenza Vaccination/Date Given: No Hx Pneumococcal Vaccination/Date Given: No Immunizations Up to Date: Yes - Review of Systems Constitutional: No Fever, No Chills Respiratory: No Cough, No Dyspnea Cardiac: No Chest Pain, No Edema, No Syncope Abdominal/Gastrointestinal: Nausea, Vomiting Genitourinary Symptoms: No Dysuria Musculoskeletal: No Back Pain, No Neck Pain - Past Medical History Pertinent Past Medical History: No Neurological History: No Pertinent History ENT History: No Pertinent History Cardiac History: No Pertinent History Respiratory History: No Pertinent History Endocrine Medical History: No Pertinent History Musculoskeletal History: No Pertinent History, Fractures GI Medical History: No Pertinent History History: No Pertinent History Psycho-Social History: No Pertinent History Female Reproductive Disorders: No Pertinent History Other Medical History: preeclampsia - Past Surgical History Past Surgical History: Yes Neuro Surgical History: No Pertinent History Cardiac: No Pertinent History Respiratory: No Pertinent History Gastrointestinal: No Pertinent History Genitourinary: No Pertinent History Musculoskeletal: No Pertinent History Female Surgical History: Section - Social History Smoking Status: Current every day smoker How long have you smoked: 17 Exposure to second hand smoke: Yes Alcohol Use: Socially Drug Use: none Patient Lives Alone: No Significant Family History: no pertinent family hx - Female History Hx Now: Yes Expected Date of Delivery: 09/15/18 Gestational Age: 17 WEEKS - Nursing Vital Signs Nursing Vital Signs: Initial Vital Signs Temperature 98.9 F 04/22/18 18:54 Pulse Rate 80 04/22/18 18:54 Respiratory Rate 18 04/22/18 18:54 Blood Pressure 134/77 04/22/18 18:54 O2 Sat by Pulse Oximetry 100 04/22/18 18:54 Pain Scale Pain Intensity 2 - Physical Exam General Appearance: no apparent distress, alert Neck Exam: normal inspection, non-tender, supple, full range of motion Respiratory Exam: normal breath sounds, lungs clear, No respiratory distress Cardiovascular Exam: regular rate/rhythm, normal heart sounds Gastrointestinal/Abdomen Exam: soft, No tenderness, No mass Back Exam: normal inspection, normal range of motion, No CVA tenderness, No vertebral tenderness SpO2: 99 - Course Nursing assessment & vital signs reviewed: Yes Ordered Tests: Active Orders 24 hr Category Date Time Status IV Insertion STAT Care 04/22/18 19:14 Active AMYLASE Stat Lab 04/22/18 19:27 Completed CBC W DIFF Stat Lab 04/22/18 19:27 Completed CMP Stat Lab 04/22/18 19:27 Completed LIPASE Stat Lab 04/22/18 19:27 Completed UA W/RFX UR CULTURE Stat Lab 04/22/18 19:12 Completed Medication Summary Discontinued Medications Generic Name Dose Route Start Last Admin Trade Name Shmuel PRN Reason Stop Dose Admin Sodium Chloride 1,000 mls @ 999 mls/hr 04/22/18 19:14 04/22/18 19:32 Sodium Chloride 0.9% 1000 Ml IV 04/22/18 20:14 999 mls/hr .Q1H1M STA Administration Sodium Chloride Confirm 04/22/18 19:22 Sodium Chloride 0.9% 1000 Ml Administered 04/22/18 19:23 Dose 1,000 mls @ ud .ROUTE .STK-MED ONE Lab/Rad Data: Laboratory Result Diagrams 04/22/18 19:27 04/22/18 19:27 Laboratory Results 04/22/18 04/22/18 04/22/18 Range/Units 19:27 19:27 19:12 WBC 12.2 H (4.0-10.5) K/mm3 RBC 4.46 (4.1-5.4) M/mm3 Hgb 13.9 (12.0-16.0) gm/dl Hct 40.8 (35-47) % MCV 91.5 (78-100) fl MCH 31.2 (26-32) pg MCHC 34.1 (32-36) g/dl RDW 13.6 (11.5-14.0) % Plt Count 298 (150-450) K/mm3 MPV 9.4 (6-9.5) fl Gran % 62.2 (36.0-66.0) % Eos # (Auto) 0.12 (0-0.5) Absolute Lymphs (auto) 3.59 (1.0-4.6) Absolute Monos (auto) 0.86 (0.0-1.3) Lymphocytes % 29.5 (24.0-44.0) % Monocytes % 7.1 (0.0-12.0) % Eosinophils % 1.0 (0.00-5.0) % Basophils % 0.2 (0.0-0.4) % Absolute Granulocytes 7.59 H (1.4-6.9) Basophils # 0.02 (0-0.4) Sodium 136 L (137-145) mmol/L Potassium 3.5 (3.5-5.1) mmol/L Chloride 103 (98-107) mmol/L Carbon Dioxide 24 (22-30) mmol/L Anion Gap 13.2 (5-15) MEQ/L BUN 10 (7-17) mg/dL Creatinine 0.53 (0.52-1.04) mg/dL Estimated GFR > 60.0 ML/MIN Glucose 98 (74-106) mg/dL Calcium 9.2 (8.4-10.2) mg/dL Total Bilirubin 0.30 (0.2-1.3) mg/dL AST 18 (14-36) U/L ALT 33 (0-35) U/L Alkaline Phosphatase 30 L (38-126) U/L Serum Total Protein 7.3 (6.3-8.2) g/dL Albumin 4.0 (3.5-5.0) g/dL Amylase 64 (30-110) U/L Lipase 112 (23-300) U/L Urine Color YELLOW (YELLOW) Urine Appearance CLOUDY (CLEAR) Urine pH 8.0 (5-6) Ur Specific [place] 1.021 (1.005-1.025) Urine Protein NEGATIVE (Negative) Urine Ketones NEGATIVE (NEGATIVE) Urine Blood NEGATIVE (0-5) [place]/ul Urine Nitrite NEGATIVE (NEGATIVE) Urine Bilirubin NEGATIVE (NEGATIVE) Urine Urobilinogen NEGATIVE (0-1) mg/dL Ur Leukocyte Esterase NEGATIVE (NEGATIVE) Urine WBC (Auto) 3-5 (0-5) /HPF Urine RBC (Auto) 3-5 (0-2) /HPF U Epithel Cells (Auto) MODERATE (FEW) /HPF Urine Bacteria (Auto) RARE (NEGATIVE) /HPF Unidentified Crystals 2-5 (NEGATIVE) /HPF Urine Mucus (Auto) SLIGHT (NEGATIVE) /HPF Urine Culture Reflexed NO (NO) Urine Glucose NEGATIVE (NEGATIVE) mg/dL - Progress Progress: improved Progress Note: 04/22/18 21:25 Pt had labs work done, and UA. She was a little dehydrated, and IVF 1 lit was given. Pt improved, and is cleared for d/c. Will see patient in: office Counseled pt/family regarding: lab results, need for follow-up - Departure Time of Disposition: 21:24 Departure Disposition: Home Clinical Impression: Condition: Stable Critical Care Time: No Referrals: CHRISTINA WOO MD [Primary Care Provider] - Additional Instructions: Pt should continue PO fluid intake. F/U with Heel Coverer Machine Operator and PCP.
[2018-04-22 21:33] VITALS: BP 122/73; PULSE 68; O2SAT 98
== END 2018-04-22 21:35 | disposition home or self-care (01) ==
LOC: ED 18:43
DX: O21.1 Hyperemesis gravidarum with metabolic disturbance (principal); Z3A.17 17 weeks gestation of pregnancy; R10.9 Unspecified abdominal pain; M54.5 Low back pain
CPT/HCPCS: 36000; 36415; 80053; 81001; 82150; 83690; 85025; 96360; 99284

== ENCOUNTER 2018-07-27 23:18 | Observation (INO) | payer SELFPAY ==
[2018-07-27] MEDS ORDERED: Sodium Chloride 0.9% 1000 ML 1,000 ML IV STA (23:59)
[2018-07-28] MEDS ORDERED: Lactated Ringers 1,000 ML IV ONE (00:25)
[2018-07-28] MEDS: MORPHINE SULFATE 4 MG INJ IV PRN ×2 (00:40→04:40)
[2018-07-28] MEDS: Phenergan 25 MG INJ IV PRN ×2 (00:40→09:50)
[2018-07-28 00:55] LABS: Granulocyte Absolute (ANC) 9.53 (1.4-6.9); Hematocrit 39.7 % (35-47); Hemoglobin 13.6 gm/dl (12.0-16.0); Mean Cell Volume 94.5 fl (78-100); Mean Corpuscular Hemoglobin 32.4 pg (26-32); Mean Corpuscular Hgb Concent. 34.3 g/dl (32-36); Platelet Count 319 K/mm3 (150-450); White Blood Count 14.1 K/mm3 (4.0-10.5)
[2018-07-28 01:09] LABS: ALBUMIN 3.4 g/dL (3.5-5.0); ALKALINE PHOSPHATASE 45 U/L (38-126); AMYLASE 74 U/L (30-110); ANION GAP 12.5 MEQ/L (5-15); BLOOD UREA NITROGEN 8 mg/dL (7-17); CHLORIDE 105 mmol/L (98-107); Calcium 9.5 mg/dL (8.4-10.2); Carbon Dioxide 23 mmol/L (22-30); Creatinine 1 0.45 mg/dL (0.52-1.04); Glucose 108 mg/dL (74-106); LIPASE 79 U/L (23-300); Potassium 3.7 mmol/L (3.5-5.1); SGOT/AST 23 U/L (14-36); SGPT/ALT 44 U/L (0-35); SODIUM 137 mmol/L (137-145); Total Protein 6.9 g/dL (6.3-8.2)
[2018-07-28 01:26] LABS: ATYPICAL LYMPHS 9 %; BAND 1 % (0.0-2.0); Eosinophil 1 % (0.00-3.0); Lymphocytes 31 % (24-44); Monocyte 4 % (0.0-12.0); Neutrophils 54 % (36.0-66.0); Platelet Estimate NORMAL (NORMAL); Total Cells Counted 100
[2018-07-28] MEDS: TYLENOL 325 MG PO PRN ×2 (01:45→08:42)
[2018-07-28 02:44] LABS: Amourphous Crystal MANY /HPF (NEGATIVE); Appearance CLOUDY (CLEAR); Bacteria MANY /HPF (NEGATIVE); Bilirubin NEGATIVE (NEGATIVE); Blood NEGATIVE Ery/ul (0-5); Epithelial Cells RARE /HPF (FEW); Glucose NEGATIVE (NEGATIVE); Ketones NEGATIVE (NEGATIVE); Leukocyte Esterase NEGATIVE (NEGATIVE); Nitrite NEGATIVE (NEGATIVE); Protein,Urine Dip NEGATIVE (Negative); RBC 0-2 /HPF (0-2); Specific Gravity 1.012 (1.005-1.025); Urobilinogen NEGATIVE mg/dL (0-1); WBC 0-2 /HPF (0-5)
[2018-07-28 02:51] LABS: Amphetamine,Urine NEGATIVE (NEGATIVE); Barbiturate,Urine NEGATIVE (NEGATIVE); Benzodiazepine,Urine NEGATIVE (NEGATIVE); Cocaine,Urine NEGATIVE (NEGATIVE); Methadone,Urine NEGATIVE (NEGATIVE); Opiate,Urine NEGATIVE (NEGATIVE); PCP,Urine NEGATIVE (NEGATIVE); THC,Urine NEGATIVE (NEGATIVE)
[2018-07-28] MEDS ORDERED: ROCEPHIN 1 Gm-D5w 50 ml Bag** 1 G/50 ML IVPB IV ONE (10:00)
[2018-07-28 10:07] LABS: ALKALINE PHOSPHATASE 41 U/L (38-126); ANION GAP 11.8 MEQ/L (5-15); BLOOD UREA NITROGEN 8 mg/dL (7-17); CHLORIDE 105 mmol/L (98-107); Calcium 8.7 mg/dL (8.4-10.2); Carbon Dioxide 22 mmol/L (22-30); Creatinine 1 0.42 mg/dL (0.52-1.04); Glucose 111 mg/dL (74-106); Potassium 3.5 mmol/L (3.5-5.1); SGOT/AST 24 U/L (14-36); SGPT/ALT 38 U/L (0-35); SODIUM 135 mmol/L (137-145); Total Protein 6.1 g/dL (6.3-8.2); Uric Acid 3.9 mg/dL (2.6-6.0)
[2018-07-28] MEDS ORDERED: Lactated Ringers 1,000 ML IV SCH ×2 (10:30→13:30)
[2018-07-28] MEDS ORDERED: Phenergan 25 MG INJ IV ONE (10:40)
[2018-07-28 13:42] VITALS: BP 137/75; PULSE 94
== END 2018-07-28 13:40 | disposition home or self-care (01) ==
LOC: OB 23:18
PROVIDERS: ADMIT Family Medicine; ATTEND Family Medicine
DX: O21.9 Vomiting of pregnancy, unspecified (principal); Z3A.24 24 weeks gestation of pregnancy; R51 Headache; R10.9 Unspecified abdominal pain; L02.214 Cutaneous abscess of groin
CPT/HCPCS: 36415; 80053; 80307; 81001; 82150; 83690; 84550; 85025; G0378; J0696; J2270; J2550; A9270-GY

== ENCOUNTER 2018-08-10 22:52 | Observation (INO) | payer SELFPAY ==
[2018-08-10 23:34] VITALS: BP 126/75; PULSE 92
[2018-08-10 23:39] LABS: Appearance SLIGHTLY CLOUDY (CLEAR); Bacteria RARE /HPF (NEGATIVE); Bilirubin NEGATIVE (NEGATIVE); Blood LARGE Ery/ul (0-5); Epithelial Cells RARE /HPF (FEW); Glucose 50 mg/dL (NEGATIVE); Ketones NEGATIVE (NEGATIVE); Leukocyte Esterase NEGATIVE (NEGATIVE); Mucus SLIGHT /HPF (NEGATIVE); Nitrite NEGATIVE (NEGATIVE); Protein,Urine Dip NEGATIVE (Negative); Specific Gravity 1.025 (1.005-1.025); Urobilinogen NEGATIVE mg/dL (0-1)
[2018-08-11 00:29] LABS: Amphetamine,Urine NEGATIVE (NEGATIVE); Barbiturate,Urine NEGATIVE (NEGATIVE); Benzodiazepine,Urine NEGATIVE (NEGATIVE); Cocaine,Urine NEGATIVE (NEGATIVE); Methadone,Urine NEGATIVE (NEGATIVE); Opiate,Urine NEGATIVE (NEGATIVE); PCP,Urine NEGATIVE (NEGATIVE); THC,Urine NEGATIVE (NEGATIVE)
== END 2018-08-11 00:25 | disposition home or self-care (01) ==
LOC: OB 22:52
PROVIDERS: ADMIT Family Medicine; ATTEND Family Medicine
DX: Z34.82 Encounter for supervision of other normal pregnancy, second trimester (principal)
CPT/HCPCS: 80307; 81001; G0378

== ENCOUNTER 2018-09-06 22:49 | Emergency (ER) | payer OTHER ==
[2018-09-06 23:15] VITALS: BP 138/68; PULSE 107; O2SAT 98
[2018-09-06] MEDS ORDERED: Pepcid 20 MG VIAL IV ONE ×2 (23:21→23:25)
[2018-09-06] MEDS ORDERED: Sodium Chloride 0.9% 1000 ML 1,000 ML IV STA (23:21)
[2018-09-06] MEDS ORDERED: MAALOX ES 30 ML UNIT DOSE PO ONE (23:21)
[2018-09-06] MEDS ORDERED: MAALOX ES 30 ML UNIT DOSE ONE (23:25)
--- NOTE | 2018-09-06 23:25 | ERPHSYRPT ---
- History of Present Illness Time Seen by Provider: 09/06/18 23:23 Historian: patient Exam Limitations: no limitations Patient Subjective Stated Complaint: Pt states she is 29 weeks . This morning she started throwing up, which is not unusual since being , however she hasn't been able to keep anything down. Then around 1700 this evening she started having chest pain in the upper part of her chest that went straight through to her back. Pt rates pain 6/10 Triage Nursing Assessment: Pt originally taken to OB dept due to being and once she stated she was having chest pain she was brought immediately to the ED. Pt crying on arrival. Respirations easy and unlabored. No SOB present at this time. Physician History: Pt states she is 29 weeks . This morning she started throwing up, which is not unusual since being , however she hasn't been able to keep anything down. Then around 1700 this evening she started having chest pain in the upper part of her chest that went straight through to her back. Pt rates pain 6/10 Timing/Duration: today Activities at Onset: none Location: substernal, central, epigastric, back Chest Pain Radiation: arm Severity of Pain-Max: mild Severity of Pain-Current: mild Modifying Factors: Improves With: nothing Associated Symptoms: denies symptoms Aspirin Treatment Today: no aspirin today Allergies/Adverse Reactions: amoxicillin Allergy (Mild, Verified 08/10/18 23:37) Rash latex Allergy (Mild, Verified 08/10/18 23:37) Home Medications: Vits W-Ca,Fe,FA(<1Mg) [] 1 tab PO DAILY 07/27/18 [History] Hx Tetanus, Diphtheria Vaccination/Date Given: Yes Hx Influenza Vaccination/Date Given: No Hx Pneumococcal Vaccination/Date Given: No Immunizations Up to Date: Yes - Review of Systems Constitutional: No Fever, No Chills Eyes: No Symptoms Ears, Nose, & Throat: No Symptoms Respiratory: No Cough, No Dyspnea Cardiac: Chest Pain, No Edema, No Syncope Abdominal/Gastrointestinal: No Abdominal Pain, No Nausea, No Vomiting, No Diarrhea Genitourinary Symptoms: No Dysuria Musculoskeletal: No Back Pain, No Neck Pain Skin: No Rash Neurological: No Dizziness, No Focal Weakness, No Sensory Changes Psychological: No Symptoms Endocrine: No Symptoms All Other Systems: Reviewed and Negative - Past Medical History Pertinent Past Medical History: Yes Neurological History: No Pertinent History ENT History: No Pertinent History Cardiac History: No Pertinent History Respiratory History: No Pertinent History Endocrine Medical History: No Pertinent History Musculoskeletal History: No Pertinent History GI Medical History: No Pertinent History History: No Pertinent History Psycho-Social History: No Pertinent History Female Reproductive Disorders: No Pertinent History Other Medical History: preeclampsia - Past Surgical History Past Surgical History: Yes Neuro Surgical History: No Pertinent History Cardiac: No Pertinent History Respiratory: No Pertinent History Gastrointestinal: No Pertinent History Genitourinary: No Pertinent History Musculoskeletal: No Pertinent History Female Surgical History: Section - Social History Smoking Status: Current every day smoker How long have you smoked: 17 Exposure to second hand smoke: Yes Alcohol Use: Socially Drug Use: none Patient Lives Alone: No Significant Family History: no pertinent family hx - Female History Hx Now: Yes Expected Date of Delivery: 11/13/18 - Nursing Vital Signs Nursing Vital Signs: Initial Vital Signs Temperature 98.1 F 09/06/18 22:59 Pulse Rate 104 H 09/06/18 22:59 Respiratory Rate 20 09/06/18 22:59 Blood Pressure 138/68 09/06/18 22:59 O2 Sat by Pulse Oximetry 98 09/06/18 22:59 Pain Scale Pain Intensity 6 - Physical Exam General Appearance: no apparent distress, alert Eye Exam: PERRL/EOMI, eyes nml inspection Ears, Nose, Throat Exam: normal ENT inspection, moist mucous membranes Neck Exam: normal inspection, non-tender, supple, full range of motion Respiratory Exam: normal breath sounds, lungs clear, No respiratory distress Cardiovascular Exam: regular rate/rhythm, normal heart sounds Gastrointestinal/Abdomen Exam: soft (29 weeks ), normal bowel sounds, other ( heart sound present), No tenderness, No mass Back Exam: normal inspection, No CVA tenderness, No vertebral tenderness Extremity Exam: normal inspection, normal range of motion Neurologic Exam: alert, oriented x 3, cooperative, normal mood/affect, sensation nml, No motor deficits Skin Exam: normal color, warm, dry SpO2: 98 - Course Nursing assessment & vital signs reviewed: Yes EKG Interpreted by Me: Sinus Rhythm Ordered Tests: Active Orders 24 hr Category Date Time Status Geophysics Teacher STAT Care 09/06/18 23:12 Active EKG-ER Only STAT Care 09/06/18 23:12 Active IV Insertion STAT Care 09/06/18 23:12 Active CBC W DIFF Stat Lab 09/06/18 23:15 Completed CMP Stat Lab 09/06/18 23:15 Received Manual Differential NC Stat Lab 09/06/18 23:15 Completed TROPONIN Stat Lab 09/06/18 23:15 Received UA W/RFX UR CULTURE Stat Lab 09/07/18 00:05 Ordered Medication Summary Generic Name Dose Route Start Last Admin Trade Name Freq PRN Reason Stop Dose Admin Sodium Chloride 1,000 mls @ 999 mls/hr 09/06/18 23:21 09/06/18 23:26 Sodium Chloride 0.9% 1000 Ml IV 09/07/18 00:21 999 mls/hr .Q1H1M STA Administration Discontinued Medications Generic Name Dose Route Start Last Admin Trade Name Freq PRN Reason Stop Dose Admin Al Hydrox/Mg Hydrox/Simethicone 30 ml 09/06/18 23:21 09/06/18 23:27 Maalox Es 30 Ml Unit Dose PO 09/06/18 23:22 30 ml STAT ONE Administration Al Hydrox/Mg Hydrox/Simethicone Confirm 09/06/18 23:25 Maalox Es 30 Ml Unit Dose Administered 09/06/18 23:26 Dose 30 ml .ROUTE .STK-MED ONE Famotidine 20 mg 09/06/18 23:21 09/06/18 23:27 Pepcid 20 Mg Vial IV 09/06/18 23:22 20 mg STAT ONE Administration Famotidine Confirm 09/06/18 23:25 Pepcid 20 Mg Vial Administered 09/06/18 23:26 Dose 20 mg IV .STK-MED ONE Sodium Chloride Confirm 09/06/18 23:26 Sodium Chloride 0.9% 1000 Ml Administered 09/06/18 23:27 Dose 1,000 mls @ ud .ROUTE .STK-MED ONE Lab/Rad Data: Laboratory Result Diagrams 09/06/18 23:15 Laboratory Results 09/06/18 Range/Units 23:15 WBC 14.2 H (4.0-10.5) K/mm3 RBC 3.99 L (4.1-5.4) M/mm3 Hgb 12.0 (12.0-16.0) gm/dl Hct 36.1 (35-47) % MCV 90.5 (78-100) fl MCH 30.0 (26-32) pg MCHC 33.2 (32-36) g/dl RDW 13.9 (11.5-14.0) % Plt Count 347 (150-450) K/mm3 MPV 9.0 (6-9.5) fl Absolute Granulocytes 9.37 H (1.4-6.9) - Progress Progress: improved Air Movement: good Blood Culture(s) Obtained: No Antibiotics given: No Counseled pt/family regarding: lab results, diagnosis, need for follow-up - Departure Departure Disposition: Home Clinical Impression: Chest pain due to gastrointestinal reflux disease Qualifiers: Weeks of gestation: 29 weeks Qualified Code(s): Z3A.29 - 29 weeks gestation of Condition: Stable Critical Care Time: Yes Critical Care Time(excluding separately billable procedures): 30-74 minutes Referrals: PAMELA MANZANARES [Primary Care Provider] - Instructions: Atypical Chest Pain, Acid Reflux (Gastroesophageal Reflux Disease ) During Additional Instructions: Discharge/Care Plan KARLAJODI DRUMMOND was seen on 09/07/18 in the Emergency Room. The patient was counseled regarding Diagnosis,Lab results, Imaging studies, need for follow up and when to return to the Emergency Room. Prescriptions given: Discharge Note I have spoken with the patient and/or caregivers. I have explained the patient' s condition, diagnosis and treatment plan based on the information available to me at this time. I have answered the patient's and/or caregiver's questions and addressed any concerns. The patient and/or caregivers have as good understanding of the patient's diagnosis, condition and treatment plan as can be expected at this point. The vital signs have been stable. The patient's condition is stable and appropriate for discharge from the emergency department. The patient will pursue further outpatient evaluation with the primary care physician or other designated or consulting physician as outlined in the discharge instructions. The patient and/or caregivers are agreeable to this plan of care and follow-up instructions have been explained in detail. The patient and/or caregivers have received these instruction. The patient/and or caregivers are aware that any significant change in condition or worsening of symptoms should prompt an immediate return to this or the closest emergency department or call 911.
[2018-09-06] MEDS ORDERED: Sodium Chloride 0.9% 1000 ML 1,000 ML ONE (23:26)
[2018-09-06 23:42] LABS: Granulocyte Absolute (ANC) 9.37 (1.4-6.9); Hematocrit 36.1 % (35-47); Mean Cell Volume 90.5 fl (78-100); Mean Corpuscular Hgb Concent. 33.2 g/dl (32-36); Platelet Count 347 K/mm3 (150-450); Red Blood Count 3.99 M/mm3 (4.1-5.4); Red Cell Distribution Width 13.9 % (11.5-14.0); White Blood Count 14.2 K/mm3 (4.0-10.5)
[2018-09-07 00:06] LABS: ALBUMIN 3.4 g/dL (3.5-5.0); ALKALINE PHOSPHATASE 70 U/L (38-126); BLOOD UREA NITROGEN 9 mg/dL (7-17); CHLORIDE 105 mmol/L (98-107); Carbon Dioxide 21 mmol/L (22-30); Creatinine 1 0.49 mg/dL (0.52-1.04); Glucose 110 mg/dL (74-106); Potassium 3.5 mmol/L (3.5-5.1); SGOT/AST 20 U/L (14-36); SGPT/ALT 40 U/L (0-35); SODIUM 136 mmol/L (137-145); Total Protein 6.9 g/dL (6.3-8.2)
[2018-09-07 00:07] LABS: TROPONIN < 0.012 ng/mL (0.000-0.034)
[2018-09-07 00:16] LABS: Appearance SLIGHTLY CLOUDY (CLEAR); Bacteria MANY /HPF (NEGATIVE); Bilirubin NEGATIVE (NEGATIVE); Blood NEGATIVE Ery/ul (0-5); Epithelial Cells RARE /HPF (FEW); Glucose 50 mg/dL (NEGATIVE); Ketones NEGATIVE (NEGATIVE); Leukocyte Esterase NEGATIVE (NEGATIVE); Mucus SLIGHT /HPF (NEGATIVE); Nitrite NEGATIVE (NEGATIVE); Protein,Urine Dip 30 (Negative); Specific Gravity 1.023 (1.005-1.025); Urobilinogen NEGATIVE mg/dL (0-1)
[2018-09-07 00:39] LABS: BAND 1 % (0.0-2.0); Eosinophil 2 % (0.00-3.0); Lymphocytes 20 % (24-44); Monocyte 6 % (0.0-12.0); Neutrophils 71 % (36.0-66.0); Platelet Estimate NORMAL (NORMAL); Total Cells Counted 100
== END 2018-09-07 00:38 | disposition home or self-care (01) ==
LOC: ED 22:49
DX: K21.9 Gastro-esophageal reflux disease without esophagitis (principal); O21.2 Late vomiting of pregnancy; Z3A.29 29 weeks gestation of pregnancy
CPT/HCPCS: 36000; 36415; 80053; 81001; 84484; 85025; 93005; 93041; 96374; 99284; A9270-GY

== ENCOUNTER 2018-09-30 13:54 | Observation (INO) | payer OTHER ==
[2018-09-30 14:35] VITALS: BP 122/66; PULSE 86
--- NOTE | 2018-09-30 16:16 | XRAY ---
Exam: OB ultrasound greater than 14 weeks from 09/30/2018. Comparison: OB ultrasound greater than 14 weeks from 08/07/2018. Indication: size versus gestational age. well-being. Findings: A single live intrauterine fetus is seen in the cephalic lie. The placenta is posterior. I see no evidence of placenta previa on the current study. heart rate measured 128 bpm. Amniotic fluid index measured 14.7 cm which is within normal limits for this stage of . Measurements of the biparietal diameter, head circumference, abdominal circumference, and femur length suggest an average gestational age of 34 weeks 1 day with an estimated due date of 11/10/2018 according to today's measurements. This is about 9 days further ahead of that anticipated by the prior exam from 08/07/2018. This is still within the normal range of variability, although the fetus may be larger than average. Estimated weight is 2358 g plus or -353.6 g (5 lbs. 3 oz.+ or -12 ounces). This places the fetus in the 55.7 percentile. size ratios including the cephalic index, femur length to abdominal circumference, femur length to biparietal diameter, femur length to head circumference, and head circumference to abdominal circumference are all within normal limits. Both body motion and respiration were seen by the development technologist. There is a normal four-chamber heart. Fluid within both the stomach and bladder was seen. The kidneys appear unremarkable. Impression: 1. 34 week 1 day single live intrauterine fetus in the cephalic lie. This is about 9 days ahead of that anticipated by the measurements on 08/07/2018. Estimated due date is 11/10/2018 according today's exam (versus 11/19/2018 from the size measurements on 08/07/2018). The given estimated due date based on dates is 11/13/2018. 2. The placenta is posterior. I see no evidence of placenta previa. 3. There is a normal amount of amniotic fluid with an amniotic fluid index of 14.7 cm. 4. No other gross abnormality is seen.
== END 2018-09-30 15:15 | disposition home or self-care (01) ==
LOC: OB 13:54
PROVIDERS: ADMIT Family Medicine; ATTEND Family Medicine
DX: Z34.83 Encounter for supervision of other normal pregnancy, third trimester (principal)
CPT/HCPCS: 36415; 59025; 76805; 80053; 84550; 85027; 86592; 86593; 86701; 86702; 86803; 87340; 87389; G0378; 0064U; 0065U

== ENCOUNTER 2018-10-04 21:05 | Emergency (ER) | payer MEDICAID, OTHER ==
--- NOTE | 2018-10-04 21:36 | ERPHSYRPT ---
- History of Present Illness Time Seen by Provider: 10/04/18 21:36 Source: patient Exam Limitations: no limitations Physician History: 28 y/o white female who is 36 weeks , presents with left upper back molar pain. fx a few days ago worse sx today. pt has dental appt on 10/21/18. pt has had keflex in past without issues. Timing/Duration: gradual onset, this evening (worsening), days Severity: moderate ENT Location: dental Prearrival Treatment: no prearrival treatment Associated Symptoms: tooth pain Allergies/Adverse Reactions: amoxicillin Allergy (Mild, Verified 10/04/18 21:41) Rash latex Allergy (Mild, Verified 10/04/18 21:41) Home Medications: Famotidine 20 mg [Pepcid 20 MG] 20 mg PO HS 10/04/18 [History] Hx Tetanus, Diphtheria Vaccination/Date Given: Yes Hx Influenza Vaccination/Date Given: No Hx Pneumococcal Vaccination/Date Given: No - Review of Systems Constitutional: No Symptoms Eyes: No Symptoms Ears, Nose, & Throat: No Symptoms Respiratory: No Symptoms Cardiac: No Symptoms Abdominal/Gastrointestinal: No Symptoms Genitourinary Symptoms: No Symptoms Musculoskeletal: No Symptoms Skin: No Symptoms Neurological: No Symptoms Psychological: No Symptoms Endocrine: No Symptoms Hematologic/Lymphatic: No Symptoms Immunological/Allergic: No Symptoms All Other Systems: Reviewed and Negative - Past Medical History Pertinent Past Medical History: No Neurological History: No Pertinent History ENT History: No Pertinent History Cardiac History: No Pertinent History Respiratory History: No Pertinent History Endocrine Medical History: No Pertinent History Musculoskeletal History: No Pertinent History, Fractures GI Medical History: No Pertinent History History: No Pertinent History Psycho-Social History: No Pertinent History Female Reproductive Disorders: No Pertinent History Other Medical History: preeclampsia - Past Surgical History Past Surgical History: Yes Neuro Surgical History: No Pertinent History Cardiac: No Pertinent History Respiratory: No Pertinent History Gastrointestinal: No Pertinent History Genitourinary: No Pertinent History Musculoskeletal: No Pertinent History Female Surgical History: Section - Social History Smoking Status: Current some day smoker How long have you smoked: 17 Exposure to second hand smoke: Yes Alcohol Use: Socially Drug Use: none Patient Lives Alone: No Significant Family History: no pertinent family hx - Nursing Vital Signs Nursing Vital Signs: Initial Vital Signs Temperature 98.1 F 10/04/18 21:32 Pulse Rate 111 H 10/04/18 21:32 Respiratory Rate 20 10/04/18 21:32 Blood Pressure 166/93 10/04/18 21:32 O2 Sat by Pulse Oximetry 97 10/04/18 21:32 Pain Scale Pain Intensity 10 - Physical Exam General Appearance: mild distress, alert, anxiety Eye Exam: bilateral eye: normal inspection, PERRL, EOMI Ear Exam: bilateral ear: auricle normal, canal normal, TM normal Nasal Exam: normal inspection Throat Exam: normal, pharynx normal, dental tenderness (left upper most post molar with dental caries and dental fx) Neck Exam: normal inspection, non-tender, supple, full range of motion, trachea midline Cardiovascular/Respiratory Exam: chest non-tender, no respiratory distress Abdominal Exam: non-tender, soft, No tenderness Neurologic Exam: alert, oriented x 3, cooperative, flight radio operator II-XII nml as tested Skin Exam: normal color, warm, dry SpO2 Interpretation: normal O2 Delivery: Room Air - Course Nursing assessment & vital signs reviewed: Yes - Progress Progress: unchanged, pain not gone completely Counseled pt/family regarding: diagnosis, need for follow-up - Departure Departure Disposition: Home Clinical Impression: Dental caries, Pain, dental Condition: Stable Critical Care Time: No Referrals: PAMELA DARDEN [Primary Care Provider] - Additional Instructions: use tylenol #3 in the morning and evening only if needed. use plain tylenol in between. keep your appointment with dr. darden on sunday10/07/18 for further management. Prescriptions: Cephalexin Mh 500 mg [Keflex 500 mg] 500 mg PO TID #21 capsule Codeine Phosphate/APAP #3 [Tylenol #3 Tablet] 1 tab PO BID PRN #5 tablet MDD 2 PRN Reason: Pain
[2018-10-04] MEDS ORDERED: KEFLEX 500 MG PO ONE (21:50)
[2018-10-04] MEDS ORDERED: Tylenol #3 Tablet PO ONE (21:52)
[2018-10-04] MEDS ORDERED: Tylenol #3 Tablet ONE (22:01)
[2018-10-04] MEDS ORDERED: KEFLEX 500 MG ONE (22:02)
[2018-10-04 22:09] VITALS: BP 125/68; PULSE 90; O2SAT 95
== END 2018-10-04 22:17 | disposition home or self-care (01) ==
LOC: ED 21:05
DX: K02.9 Dental caries, unspecified (principal); K08.89 Other specified disorders of teeth and supporting structures; Z33.1 Pregnant state, incidental
CPT/HCPCS: 99283; A9270-GY

== ENCOUNTER 2018-10-09 13:47 | Observation (INO) | payer MEDICAID | END 2018-10-09 21:08 | disposition home or self-care (01) | LOC: OB 13:47 ==

== ENCOUNTER 2018-10-14 18:22 | Observation (INO) | payer OTHER ==
[2018-10-14 19:27] LABS: Appearance SLIGHTLY CLOUDY (CLEAR); Bacteria RARE /HPF (NEGATIVE); Bilirubin NEGATIVE (NEGATIVE); Blood NEGATIVE Ery/ul (0-5); Epithelial Cells MODERATE /HPF (FEW); Glucose NEGATIVE (NEGATIVE); Ketones NEGATIVE (NEGATIVE); Leukocyte Esterase NEGATIVE (NEGATIVE); Nitrite NEGATIVE (NEGATIVE); Protein,Urine Dip NEGATIVE (Negative); Specific Gravity 1.006 (1.005-1.025); Urobilinogen NEGATIVE mg/dL (0-1)
[2018-10-14] MEDS ORDERED: Tums EX 750 MG PO PRN (20:19)
[2018-10-14] MEDS: Lactated Ringers 1,000 ML IV ONE ×2 (20:36→21:54)
[2018-10-14] MEDS: Lactated Ringers 1,000 ML IV SCH (22:02)
[2018-10-15] MEDS: Lactated Ringers 1,000 ML IV SCH (06:04)
[2018-10-15 09:50] VITALS: BP 130/82; PULSE 93
== END 2018-10-15 08:50 | disposition home or self-care (01) ==
LOC: OB 18:22
PROVIDERS: ADMIT Family Medicine; ATTEND Family Medicine
DX: Z34.83 Encounter for supervision of other normal pregnancy, third trimester (principal)
CPT/HCPCS: 81001; 81003; 83986; G0378; A9270-GY

== ENCOUNTER 2018-10-19 23:50 | Observation (INO) | payer OTHER ==
[2018-10-20 01:16] VITALS: O2SAT 98
[2018-10-20 05:25] VITALS: BP 109/56; PULSE 96
== END 2018-10-20 01:36 | disposition home or self-care (01) ==
LOC: OB 23:50
PROVIDERS: ADMIT Family Medicine; ATTEND Family Medicine
DX: Z34.83 Encounter for supervision of other normal pregnancy, third trimester (principal)
CPT/HCPCS: G0378

== ENCOUNTER 2018-10-22 06:08 | Observation (INO) | payer OTHER ==
[2018-10-22] MEDS ORDERED: Phenergan 25 MG INJ IV ONE (06:38)
[2018-10-22] MEDS ORDERED: MORPHINE SULFATE 2 MG INJ IV ONE ×2 (06:38→07:45)
[2018-10-22] MEDS ORDERED: Phenergan 25 MG INJ ONE (06:39)
[2018-10-22] MEDS ORDERED: MORPHINE SULFATE 2 MG INJ ONE ×2 (06:39→07:48)
--- NOTE | 2018-10-22 06:49 | ERPHSYRPT ---
- History of Present Illness Source: patient Exam Limitations: clinical condition Patient Subjective Stated Complaint: pt states, "I've had a headache for 4 days but I can get it to go away with Tylenol but I can't today". Triage Nursing Assessment: pt alert and oriented, crying due to headache. Headache is on lt side of head, no bumps noted. Pt denies falling and hasn't hit her head. Pt rates pain a 10 on 0-10 scale. Lungs clear, heart tones reg. Abd lg, soft, at 39 weeks. Heart tones noted at 140. Pt to have c- section on Sunday. Timing/Duration: day(s) (4), worse Quality: aching, throbbing Head Pain Location: temporal (left) Severity of Pain-Max: severe Severity of Pain-Current: severe Recent Head Trauma: no recent headache/trauma Modifying Factors: Improves With: exposure to light, movement, noise Associated Symptoms: nausea/vomiting, sensitive to light Previous symptoms: same symptoms as today (but much worse) Hx Tetanus, Diphtheria Vaccination/Date Given: Yes Hx Influenza Vaccination/Date Given: No Hx Pneumococcal Vaccination/Date Given: No Immunizations Up to Date: Yes <CONCHIS RICHARDSON - Last Filed: 10/22/18 06:43> <GISELL JOHNSON - Last Filed: 10/22/18 08:32> - History of Present Illness Time Seen by Provider: 10/22/18 06:30 Physician History: 28 y/o white female presents with 4 day h/o of worsening headache on left side. pt denies trauma. 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 headache much worse. WOJCIECH Choudhary, an ob nurse working down in ED today, saw pt this past Sunday and states pt is much worse than Sunday. pt is scheduled for a c section this coming Sunday. (CONCHIS RICHARDSON) Allergies/Adverse Reactions: amoxicillin Allergy (Mild, Verified 10/14/18 18:33) Rash latex Allergy (Mild, Verified 10/14/18 18:33) Home Medications: Cephalexin Mh 500 mg [Keflex 500 mg] 500 mg PO BID 10/22/18 [History] - Review of Systems Constitutional: No Symptoms Eyes: Eye Pain, Photophobia Ears, Nose, & Throat: No Symptoms Respiratory: No Symptoms Cardiac: No Symptoms Abdominal/Gastrointestinal: No Symptoms Genitourinary Symptoms: No Symptoms Musculoskeletal: No Symptoms Skin: No Symptoms Neurological: No Symptoms Psychological: No Symptoms Endocrine: No Symptoms Hematologic/Lymphatic: No Symptoms Immunological/Allergic: No Symptoms All Other Systems: Reviewed and Negative <CONCHIS RICHARDSON - Last Filed: 10/22/18 06:43> - Past Medical History Pertinent Past Medical History: No Neurological History: No Pertinent History ENT History: No Pertinent History Cardiac History: No Pertinent History Respiratory History: No Pertinent History Endocrine Medical History: No Pertinent History Musculoskeletal History: Fractures GI Medical History: No Pertinent History History: No Pertinent History Psycho-Social History: No Pertinent History Female Reproductive Disorders: No Pertinent History Other Medical History: preeclampsia, fx rt foot - Past Surgical History Past Surgical History: Yes Neuro Surgical History: No Pertinent History Cardiac: No Pertinent History Respiratory: No Pertinent History Gastrointestinal: No Pertinent History Genitourinary: No Pertinent History Musculoskeletal: No Pertinent History Female Surgical History: Section - Social History Smoking Status: Current every day smoker How long have you smoked: 19 yrs Exposure to second hand smoke: Yes Alcohol Use: Socially Drug Use: none Patient Lives Alone: No Significant Family History: no pertinent family hx - Female History Hx Now: Yes Expected Date of Delivery: 10/25/18 Gestational Age: 39 weeks <CONCHIS RICHARDSON - Last Filed: 10/22/18 06:43> - Physical Exam General Appearance: moderate distress, alert, anxiety, obese Eye Exam: PERRL/EOMI, post op pupil defect (L) Ears, Nose, Throat Exam: normal ENT inspection, moist mucous membranes Neck Exam: normal inspection, non-tender, supple, full range of motion Respiratory Exam: normal breath sounds, lungs clear, airway intact, No chest tenderness, No respiratory distress Cardiovascular Exam: regular rate/rhythm, normal heart sounds, normal peripheral pulses Gastrointestinal/Abdominal Exam: soft, normal bowel sounds, No tenderness Back Exam: normal inspection, normal range of motion, No CVA tenderness, No vertebral tenderness Extremity Exam: normal inspection, normal range of motion, pelvis stable Mental Status Exam: alert, oriented x 3, cooperative internet assessor Exam: normal hearing, normal speech, PERRL Motor/Sensory Exam: no motor deficit, no sensory deficit Skin Exam: normal color, warm, dry Lymphatic Exam: No adenopathy SpO2 Interpretation: normal SpO2: 99 O2 Delivery: Room Air <CONCHIS RICHARDSON - Last Filed: 10/22/18 06:43> - Nursing Vital Signs Nursing Vital Signs: Initial Vital Signs Temperature 98.5 F 10/22/18 06:08 Pulse Rate 93 H 10/22/18 06:08 Respiratory Rate 18 10/22/18 06:08 Blood Pressure 120/78 10/22/18 06:08 O2 Sat by Pulse Oximetry 99 10/22/18 06:08 Pain Scale Pain Intensity 8 - Course Nursing assessment & vital signs reviewed: Yes <CONCHIS RICHARDSON - Last Filed: 10/22/18 06:43> Ordered Tests: Active Orders 24 hr Category Date Time Status IV Insertion STAT Care 10/22/18 06:38 Active HEAD WITHOUT CONTRAST [CT] Stat Exams 10/22/18 06:42 Completed CBC W DIFF Stat Lab 10/22/18 06:25 Completed CMP Stat Lab 10/22/18 06:25 Completed Manual Differential NC Stat Lab 10/22/18 06:25 Completed UA W/RFX UR CULTURE Stat Lab 10/22/18 06:51 Completed Medication Summary Discontinued Medications Generic Name Dose Route Start Last Admin Trade Name Shmuel PRN Reason Stop Dose Admin Sodium Chloride 500 mls @ 500 mls/hr 10/22/18 07:14 10/22/18 07:24 Sodium Chloride 0.9% 500 Ml IV 10/22/18 08:13 500 mls/hr .Q1H ONE Administration Magnesium Sulfate 2 gm/ Sodium 104 mls @ 104 mls/hr 10/22/18 07:30 10/22/18 07:33 Chloride IV 10/22/18 08:29 104 mls/hr 0730 RADHA Administration Magnesium Sulfate/Dextrose 100 mls @ 100 mls/hr 10/22/18 07:30 Magnesium 1 Gm / 100 Ml D5w IV 10/22/18 09:29 Q1H RADHA Sodium Chloride Confirm 10/22/18 07:21 Sodium Chloride 0.9% 1000 Ml Administered 10/22/18 07:22 Dose 1,000 mls @ ud .ROUTE .STK-MED ONE Morphine Sulfate Confirm 10/22/18 06:39 Morphine Sulfate 2 Mg Inj Administered 10/22/18 06:40 Dose 2 mg .ROUTE .STK-MED ONE Morphine Sulfate 2 mg 10/22/18 06:38 10/22/18 06:53 Morphine Sulfate 2 Mg Inj IV 10/22/18 06:39 2 mg STAT ONE Administration Morphine Sulfate 2 mg 10/22/18 07:45 10/22/18 07:49 Morphine Sulfate 2 Mg Inj IV 10/22/18 07:46 2 mg STAT ONE Administration Morphine Sulfate Confirm 10/22/18 07:48 Morphine Sulfate 2 Mg Inj Administered 10/22/18 07:49 Dose 2 mg .ROUTE .STK-MED ONE Ondansetron HCl 4 mg 10/22/18 07:18 10/22/18 07:26 Zofran 4 Mg/2 Ml Vial IV 10/22/18 07:19 4 mg STAT ONE Administration Ondansetron HCl Confirm 10/22/18 07:25 Zofran 4 Mg/2 Ml Vial Administered 10/22/18 07:26 Dose 4 mg .ROUTE .STK-MED ONE Promethazine HCl Confirm 10/22/18 06:39 Phenergan 25 Mg Inj Administered 10/22/18 06:40 Dose 25 mg .ROUTE .STK-MED ONE Promethazine HCl 12.5 mg 10/22/18 06:38 10/22/18 06:53 Phenergan 25 Mg Inj IV 10/22/18 06:39 12.5 mg STAT ONE Administration Lab/Rad Data: Laboratory Result Diagrams 10/22/18 06:25 10/22/18 06:25 Laboratory Results 10/22/18 10/22/18 10/22/18 Range/Units 06:51 06:25 06:25 WBC 13.8 H (4.0-10.5) K/mm3 RBC 4.18 (4.1-5.4) M/mm3 Hgb 11.5 L (12.0-16.0) gm/dl Hct 35.7 (35-47) % MCV 85.4 (78-100) fl MCH 27.5 (26-32) pg MCHC 32.2 (32-36) g/dl RDW 14.9 H (11.5-14.0) % Plt Count 399 (150-450) K/mm3 MPV 8.7 (6-9.5) fl Gran % 68.1 H (36.0-66.0) % Eos # (Auto) 0.10 (0-0.5) Absolute Lymphs (auto) 3.15 (1.0-4.6) Absolute Monos (auto) 1.12 (0.0-1.3) Lymphocytes % 22.9 L (24.0-44.0) % Monocytes % 8.1 (0.0-12.0) % Eosinophils % 0.7 (0.00-5.0) % Basophils % 0.2 (0.0-0.4) % Absolute Granulocytes 9.35 H (1.4-6.9) Segmented Neutrophils 72 H (36.0-66.0) % Band Neutrophils 3 H (0.0-2.0) % Lymphocytes (Manual) 18 L (24-44) % Monocytes (Manual) 5 (0.0-12.0) % Eosinophils (Manual) 2 (0.00-3.0) % Basophils # 0.03 (0-0.4) Hypochromia 1+ Platelet Estimate NORMAL (NORMAL) RBC Morphology ABNORMAL Polychromasia 1+ Sodium 136 L (137-145) mmol/L Potassium 4.2 (3.5-5.1) mmol/L Chloride 106 (98-107) mmol/L Carbon Dioxide 21 L (22-30) mmol/L Anion Gap 12.8 (5-15) MEQ/L BUN 10 (7-17) mg/dL Creatinine 0.47 L (0.52-1.04) mg/dL Estimated GFR > 60.0 ML/MIN Glucose 123 H (74-106) mg/dL Calcium 9.8 (8.4-10.2) mg/dL Total Bilirubin 0.30 (0.2-1.3) mg/dL AST 21 (14-36) U/L ALT 48 H (0-35) U/L Alkaline Phosphatase 120 (38-126) U/L Serum Total Protein 6.3 (6.3-8.2) g/dL Albumin 3.4 L (3.5-5.0) g/dL Urine Color YELLOW (YELLOW) Urine Appearance SLIGHTLY CLOUDY (CLEAR) Urine pH 6.0 (5-6) Ur Specific [place] 1.017 (1.005-1.025) Urine Protein NEGATIVE (Negative) Urine Ketones NEGATIVE (NEGATIVE) Urine Blood NEGATIVE (0-5) [place]/ul Urine Nitrite NEGATIVE (NEGATIVE) Urine Bilirubin NEGATIVE (NEGATIVE) Urine Urobilinogen NEGATIVE (0-1) mg/dL Ur Leukocyte Esterase NEGATIVE (NEGATIVE) Urine WBC (Auto) 0-2 (0-5) /HPF Urine RBC (Auto) NONE (0-2) /HPF U Epithel Cells (Auto) RARE (FEW) /HPF Urine Bacteria (Auto) FEW (NEGATIVE) /HPF Urine Mucus (Auto) SLIGHT (NEGATIVE) /HPF Urine Culture Reflexed NO (NO) Urine Glucose NEGATIVE (NEGATIVE) mg/dL - Progress Air Movement: good <CONCHIS RICHARDSON - Last Filed: 10/22/18 06:43> - Progress Progress: improved Blood Culture(s) Obtained: No Antibiotics given: No Discussed with : Raymond Will see patient in: hospital (observation) Counseled pt/family regarding: lab results, diagnosis, rad results <GISELL JOHNSON - Last Filed: 10/22/18 08:32> - Progress Progress Note: 10/22/18 06:51 pt is having much worse headache over 4 days. pt states was controlled with tylenol but now not touching it. pt states headache pain is 11/10. pt is but has the worst headache she has ever had. i briefly discussed risks vs benefits of a ct scan of head. she will decide if she wants it performed. 10/22/18 06:53 i am signing out and transferring care to Dr. Johnson. i reviewed pt hx, labs and studies pending to follow up on. Dr. Johnson accepts pt. (CONCHIS RICHARDSON) Lab work showed mild leukocytosis that is probably secondary to . Dr Roberson was contacted, and she cleared pt for head CT, another dose of Morphine and Zofran was given to the pt with no relief. Dr Roberson instructed the pt to go to L&D for observation. If CT is normal will place pt in observation. 10/22/18 08:23 10/22/18 08:[address] did not show any acute pathology. Pt will be transfered to L&D. ( GISELL JOHNSON) <CONCHIS RICHARDSON - Last Filed: 10/22/18 06:43> - Departure Departure Disposition: Observation Critical Care Time: No <MODESTOGISELL - Last Filed: 10/22/18 08:32> - Departure Clinical Impression: Headache associated with hormonal factors Condition: Stable Referrals: PAMELA MANZANARES [Primary Care Provider] - Additional Instructions: Pt to go to L&D for observation. Dr Roberson accepted.
[2018-10-22 06:52] LABS: BASOPHIL % 0.2 % (0.0-0.4); Basophil (Absolute #) 0.03 (0-0.4); Eosinophil % 0.7 % (0.00-5.0); Granulocyte Absolute (ANC) 9.35 (1.4-6.9); Granulocytes % 68.1 % (36.0-66.0); Hematocrit 35.7 % (35-47); Hemoglobin 11.5 gm/dl (12.0-16.0); Lymphocyte (Absolute #) 3.15 (1.0-4.6); Lymphocytes % 22.9 % (24.0-44.0); Mean Cell Volume 85.4 fl (78-100); Mean Corpuscular Hemoglobin 27.5 pg (26-32); Mean Corpuscular Hgb Concent. 32.2 g/dl (32-36); Mean Platelet Volume 8.7 fl (6-9.5); Monocyte (Absolute #) 1.12 (0.0-1.3); Monocytes % 8.1 % (0.0-12.0); Platelet Count 399 K/mm3 (150-450); Red Blood Count 4.18 M/mm3 (4.1-5.4); Red Cell Distribution Width 14.9 % (11.5-14.0); White Blood Count 13.8 K/mm3 (4.0-10.5)
[2018-10-22 07:02] LABS: Appearance SLIGHTLY CLOUDY (CLEAR); Bacteria FEW /HPF (NEGATIVE); Bilirubin NEGATIVE (NEGATIVE); Blood NEGATIVE Ery/ul (0-5); Epithelial Cells RARE /HPF (FEW); Glucose NEGATIVE (NEGATIVE); Ketones NEGATIVE (NEGATIVE); Leukocyte Esterase NEGATIVE (NEGATIVE); Mucus SLIGHT /HPF (NEGATIVE); Nitrite NEGATIVE (NEGATIVE); Protein,Urine Dip NEGATIVE (Negative); Specific Gravity 1.017 (1.005-1.025); Urobilinogen NEGATIVE mg/dL (0-1); WBC 0-2 /HPF (0-5)
[2018-10-22 07:08] LABS: BAND 3 % (0.0-2.0); Eosinophil 2 % (0.00-3.0); Lymphocytes 18 % (24-44); Monocyte 5 % (0.0-12.0); Neutrophils 72 % (36.0-66.0); Platelet Estimate NORMAL (NORMAL); Total Cells Counted 100
[2018-10-22 07:09] LABS: Hypochromia 1+; Polychromasia 1+
[2018-10-22 07:12] LABS: ALBUMIN 3.4 g/dL (3.5-5.0); ALKALINE PHOSPHATASE 120 U/L (38-126); ANION GAP 12.8 MEQ/L (5-15); BLOOD UREA NITROGEN 10 mg/dL (7-17); CHLORIDE 106 mmol/L (98-107); Calcium 9.8 mg/dL (8.4-10.2); Carbon Dioxide 21 mmol/L (22-30); Creatinine 1 0.47 mg/dL (0.52-1.04); Glucose 123 mg/dL (74-106); Potassium 4.2 mmol/L (3.5-5.1); SGOT/AST 21 U/L (14-36); SGPT/ALT 48 U/L (0-35); SODIUM 136 mmol/L (137-145); Total Protein 6.3 g/dL (6.3-8.2)
[2018-10-22] MEDS ORDERED: Sodium Chloride 0.9% 500 ML 500 ML IV ONE (07:14)
[2018-10-22] MEDS ORDERED: Magnesium Sulfate 1 GM/2 ML VIAL IV STA (07:15)
[2018-10-22] MEDS ORDERED: Zofran 4 MG/2 ML VIAL IV ONE (07:18)
[2018-10-22] MEDS ORDERED: Sodium Chloride 0.9% 1000 ML 1,000 ML ONE (07:21)
[2018-10-22] MEDS ORDERED: Zofran 4 MG/2 ML VIAL ONE (07:25)
[2018-10-22] MEDS ORDERED: Magnesium 1 Gm / 100 Ml D5W*** 100 ML IV SCH (07:30)
[2018-10-22] MEDS ORDERED: Magnesium Sulfate 1 GM/2 ML VIAL*** 2 GM in Sodium Chloride 0.9% 100 ML IVPB 100 ML IV SCH (07:30)
--- NOTE | 2018-10-22 08:28 | XRAY ---
Exam: CT of the head without IV contrast from 10/22/2018. CTDI: 67.80 Comparison: None. Indication: 28-year-old female with left-sided headache, patient states it is the worst headache she has ever had. Technique: Non-IV contrast axial images were obtained through the brain. Reconstructed coronal and sagittal images were created and reviewed. Findings: The ventricles are of normal size and configuration. The patient's head is slightly turned toward the left in the CT gantry. No focal mass effect or midline shift is seen. I see no acute intracranial bleed or abnormal extra-axial fluid collection. The bee matter-white matter interfaces appear unremarkable. No low attenuation territorial infarct is seen. The cortical sulci and basilar cisterns appear unremarkable. The calvarium of the skull appears intact. I note some mild scattered mucosal thickening within the ethmoid sinus complex bilaterally. No air-fluid levels are seen. The remainder of the visualized paranasal sinuses appears clear. The mastoid air cells are clear without effusion. Impression: 1. No acute intracranial bleed or other acute brain abnormality is seen. 2. Mild chronic mucosal thickening within the ethmoid sinuses, likely chronic. No air-fluid levels are seen.
[2018-10-22] MEDS ORDERED: Phenergan 25 MG INJ IM PRN (08:33)
[2018-10-22] MEDS ORDERED: MORPHINE SULFATE 2 MG INJ IV PRN (08:33)
[2018-10-22] MEDS ORDERED: Zofran 4 MG/2 ML VIAL IV PRN (08:33)
[2018-10-22] MEDS ORDERED: MORPHINE SULFATE 4 MG INJ IV PRN (09:45)
[2018-10-22] MEDS: MORPHINE SULFATE 10 MG/ML IV PRN ×4 (10:54→23:35)
[2018-10-22] MEDS: Phenergan 25 MG INJ IV PRN ×2 (10:55→15:51)
[2018-10-22 13:16] LABS: Amphetamine,Urine NEGATIVE (NEGATIVE); Barbiturate,Urine NEGATIVE (NEGATIVE); Benzodiazepine,Urine NEGATIVE (NEGATIVE); Cocaine,Urine NEGATIVE (NEGATIVE); Methadone,Urine NEGATIVE (NEGATIVE); Opiate,Urine NEGATIVE (NEGATIVE); PCP,Urine NEGATIVE (NEGATIVE); THC,Urine NEGATIVE (NEGATIVE)
[2018-10-22] MEDS: TYLENOL 325 MG PO PRN (13:46)
[2018-10-22] MEDS: Sodium Chloride 0.9% 1000 ML 1,000 ML IV SCH (14:39)
[2018-10-22] MEDS: ISOPTIN S.R. 240 MG PO ONE ×2 (15:57→15:59)
[2018-10-22] MEDS ORDERED: Phenergan 25 MG INJ IV PRN (16:01)
[2018-10-22] MEDS ORDERED: MORPHINE SULFATE 10 MG/ML IV ONE (17:39)
--- NOTE | 2018-10-22 21:09 | PCM.NOTE ---
Date and Time: 10/22/182102 Subjective Assessment: I was present for the last half of her teleneurology consult, thank you. Pt continues to have WATTERS. Will get better with morphine, then even if she's sleeping it will return and wake her with throbbing pain. L sided. Better when RN puts pressure on certain area of L parietal portion of head. Objective Exam General Appearance: mild distress Neurologic Exam: alert, cooperative Skin Exam: normal color, warm, dry, No rash OBJECTIVE DATA Vital Signs: Vital Signs - 24 hr Temp Pulse Resp BP BP Pulse Ox 10/22/18 18:44 86 18 129/77 10/22/18 16:20 95 H 18 10/22/18 14:55 95 H 18 128/66 10/22/18 13:48 98.5 F 81 18 134/75 10/22/18 13:17 98.5 F 81 18 134/75 10/22/18 09:11 98.3 F 83 18 128/66 10/22/18 08:58 98.3 F 83 18 128/66 10/22/18 08:38 87 18 122/67 95 10/22/18 07:37 90 18 135/81 97 10/22/18 07:01 95 H 18 137/74 10/22/18 06:55 99 10/22/18 06:55 72 18 137/74 96 10/22/18 06:08 98.5 F 93 H 18 120/78 99 Pain Assessment - Last Documented Pain Intensity 10 Pain Scale Used 0-10 Pain Scale Intake and Output: Intake & Output 10/20/18 10/21/18 10/22/18 10/23/18 11:59 11:59 11:59 11:59 Intake Total 1000 Balance 1000 Weight 263 kg 119.665 kg Lab Results: Lab Results-Last 24 Hours 10/22/18 10/22/18 10/22/18 Range/Units 06:25 06:25 06:51 WBC 13.8 H (4.0-10.5) K/mm3 RBC 4.18 (4.1-5.4) M/mm3 Hgb 11.5 L (12.0-16.0) gm/dl Hct 35.7 (35-47) % MCV 85.4 (78-100) fl MCH 27.5 (26-32) pg MCHC 32.2 (32-36) g/dl RDW 14.9 H (11.5-14.0) % Plt Count 399 (150-450) K/mm3 MPV 8.7 (6-9.5) fl Gran % 68.1 H (36.0-66.0) % Eos # (Auto) 0.10 (0-0.5) Absolute Lymphs (auto) 3.15 (1.0-4.6) Absolute Monos (auto) 1.12 (0.0-1.3) Lymphocytes % 22.9 L (24.0-44.0) % Monocytes % 8.1 (0.0-12.0) % Eosinophils % 0.7 (0.00-5.0) % Basophils % 0.2 (0.0-0.4) % Absolute Granulocytes 9.35 H (1.4-6.9) Segmented Neutrophils 72 H (36.0-66.0) % Band Neutrophils 3 H (0.0-2.0) % Lymphocytes (Manual) 18 L (24-44) % Monocytes (Manual) 5 (0.0-12.0) % Eosinophils (Manual) 2 (0.00-3.0) % Basophils # 0.03 (0-0.4) Hypochromia 1+ Platelet Estimate NORMAL (NORMAL) RBC Morphology ABNORMAL Polychromasia 1+ Sodium 136 L (137-145) mmol/L Potassium 4.2 (3.5-5.1) mmol/L Chloride 106 (98-107) mmol/L Carbon Dioxide 21 L (22-30) mmol/L Anion Gap 12.8 (5-15) MEQ/L BUN 10 (7-17) mg/dL Creatinine 0.47 L (0.52-1.04) mg/dL Estimated GFR > 60.0 ML/MIN Glucose 123 H (74-106) mg/dL Calcium 9.8 (8.4-10.2) mg/dL Total Bilirubin 0.30 (0.2-1.3) mg/dL AST 21 (14-36) U/L ALT 48 H (0-35) U/L Alkaline Phosphatase 120 (38-126) U/L Serum Total Protein 6.3 (6.3-8.2) g/dL Albumin 3.4 L (3.5-5.0) g/dL Urine Color YELLOW (YELLOW) Urine Appearance SLIGHTLY CLOUDY (CLEAR) Urine pH 6.0 (5-6) Ur Specific [place] 1.017 (1.005-1.025) Urine Protein NEGATIVE (Negative) Urine Ketones NEGATIVE (NEGATIVE) Urine Blood NEGATIVE (0-5) [place]/ul Urine Nitrite NEGATIVE (NEGATIVE) Urine Bilirubin NEGATIVE (NEGATIVE) Urine Urobilinogen NEGATIVE (0-1) mg/dL Ur Leukocyte Esterase NEGATIVE (NEGATIVE) Urine WBC (Auto) 0-2 (0-5) /HPF Urine RBC (Auto) NONE (0-2) /HPF U Epithel Cells (Auto) RARE (FEW) /HPF Urine Bacteria (Auto) FEW (NEGATIVE) /HPF Urine Mucus (Auto) SLIGHT (NEGATIVE) /HPF Urine Culture Reflexed NO (NO) Urine Glucose NEGATIVE (NEGATIVE) mg/dL Urine Opiates Level (NEGATIVE) Ur Methadone (NEGATIVE) Urine Barbiturates (NEGATIVE) Ur Phencyclidine (PCP) (NEGATIVE) Urine Amphetamine (NEGATIVE) U Benzodiazepine Level (NEGATIVE) Urine Cocaine (NEGATIVE) Urine Marijuana (THC) (NEGATIVE) 10/22/18 Range/Units 09:56 WBC (4.0-10.5) K/mm3 RBC (4.1-5.4) M/mm3 Hgb (12.0-16.0) gm/dl Hct (35-47) % MCV (78-100) fl MCH (26-32) pg MCHC (32-36) g/dl RDW (11.5-14.0) % Plt Count (150-450) K/mm3 MPV (6-9.5) fl Gran % (36.0-66.0) % Eos # (Auto) (0-0.5) Absolute Lymphs (auto) (1.0-4.6) Absolute Monos (auto) (0.0-1.3) Lymphocytes % (24.0-44.0) % Monocytes % (0.0-12.0) % Eosinophils % (0.00-5.0) % Basophils % (0.0-0.4) % Absolute Granulocytes (1.4-6.9) Segmented Neutrophils (36.0-66.0) % Band Neutrophils (0.0-2.0) % Lymphocytes (Manual) (24-44) % Monocytes (Manual) (0.0-12.0) % Eosinophils (Manual) (0.00-3.0) % Basophils # (0-0.4) Hypochromia Platelet Estimate (NORMAL) RBC Morphology Polychromasia Sodium (137-145) mmol/L Potassium (3.5-5.1) mmol/L Chloride (98-107) mmol/L Carbon Dioxide (22-30) mmol/L Anion Gap (5-15) MEQ/L BUN (7-17) mg/dL Creatinine (0.52-1.04) mg/dL Estimated GFR ML/MIN Glucose (74-106) mg/dL Calcium (8.4-10.2) mg/dL Total Bilirubin (0.2-1.3) mg/dL AST (14-36) U/L ALT (0-35) U/L Alkaline Phosphatase (38-126) U/L Serum Total Protein (6.3-8.2) g/dL Albumin (3.5-5.0) g/dL Urine Color (YELLOW) Urine Appearance (CLEAR) Urine pH (5-6) Ur Specific [place] (1.005-1.025) Urine Protein (Negative) Urine Ketones (NEGATIVE) Urine Blood (0-5) [place]/ul Urine Nitrite (NEGATIVE) Urine Bilirubin (NEGATIVE) Urine Urobilinogen (0-1) mg/dL Ur Leukocyte Esterase (NEGATIVE) Urine WBC (Auto) (0-5) /HPF Urine RBC (Auto) (0-2) /HPF U Epithel Cells (Auto) (FEW) /HPF Urine Bacteria (Auto) (NEGATIVE) /HPF Urine Mucus (Auto) (NEGATIVE) /HPF Urine Culture Reflexed (NO) Urine Glucose (NEGATIVE) mg/dL Urine Opiates Level NEGATIVE (NEGATIVE) Ur Methadone NEGATIVE (NEGATIVE) Urine Barbiturates NEGATIVE (NEGATIVE) Ur Phencyclidine (PCP) NEGATIVE (NEGATIVE) Urine Amphetamine NEGATIVE (NEGATIVE) U Benzodiazepine Level NEGATIVE (NEGATIVE) Urine Cocaine NEGATIVE (NEGATIVE) Urine Marijuana (THC) NEGATIVE (NEGATIVE) Radiology Exams: Radiology Procedures Category Date Time Status HEAD WITHOUT CONTRAST [CT] Stat Exams 10/22/18 06:42 Completed Assessment/Plan (1) Headache Current Visit: Yes Status: Acute Qualifiers: Headache type: new daily persistent Qualified Code(s): G44.52 - New daily persistent headache (NDPH) Assessment & Plan: CT head was negative, aside from some sinusitis, which although chronic I have treated with rocephin. Per teleneurology will change phenergan to reglan (maintain 4-6h dosing interval from last phenergan dose). Benadryl IV. Also will give decadron 4mg IV BID. If no improvement in the morning, will get MRI to rule out venous thrombus. Less likely SAH due to gradual onset of WATTERS. Less likely infectious with no temperature elevation. If WATTERS persistent and MRI negative would consider LP; would do L lateral decubitus and endeavor to get accurate opening pressure. Code(s): R51 - HEADACHE (2) Sinusitis Current Visit: Yes Status: Acute Qualifiers: Sinusitis location: ethmoidal Chronicity: subacute Qualified Code(s): J01.20 - Acute ethmoidal sinusitis, unspecified Code(s): J32.9 - CHRONIC SINUSITIS, UNSPECIFIED (3) Current Visit: No Status: Acute Qualifiers: Weeks of gestation: 38 weeks Qualified Code(s): Z3A.38 - 38 weeks gestation of Assessment & Plan: FHT are great currently, good accelrations, approx 140 bpm. Scheduled for repeat c/s in 3d. Code(s): Z34.90 - ENCNTR FOR SUPRVSN OF NORMAL , UNSP, UNSP TRIMESTER
[2018-10-22] MEDS: Decadron 4 MG INJ IV SCH (21:39)
[2018-10-22] MEDS: BENADRYL 50 MG/ML IV PRN (21:39)
[2018-10-22] MEDS: Reglan 10 MG/2 ML IV PRN (23:36)
[2018-10-23] MEDS: MORPHINE SULFATE 10 MG/ML IV PRN ×5 (03:43→22:01)
[2018-10-23] MEDS: BENADRYL 50 MG/ML IV PRN ×2 (04:51→11:27)
[2018-10-23] MEDS: Sodium Chloride 0.9% 1000 ML 1,000 ML IV SCH ×2 (04:57→23:59)
[2018-10-23] MEDS: Reglan 10 MG/2 ML IV PRN ×3 (04:59→19:57)
[2018-10-23] MEDS: Decadron 4 MG INJ IV SCH ×2 (10:19→22:08)
[2018-10-23] MEDS ORDERED: ROCEPHIN 1 Gm-D5w 50 ml Bag** 1 G/50 ML IVPB IV ONE (13:00)
--- NOTE | 2018-10-23 15:12 | XRAY ---
Indication: Left temporoparietal headache 5 days. Approximately 39 weeks . Sagittal, coronal, and axial MRI brain was performed without contrast using T1, T2, FLAIR, diffusion, and ADC sequences. Conventional MRV was also performed. Comparison: None Ventriculosulcal pattern appears symmetric. No acute intracranial hemorrhage, abnormal extra-axial fluid collection, or mass effect. Diffusion images are negative for restricted signal. Fourth ventricle is midline without hydrocephalus. Prominent pituitary gland presumed related to . 7/8 cranial nerve complex bilaterally symmetric. Normal flow void signal within the major intracerebral circulation. Normal appearing cranial cervical junction. Paranasal sinuses are clear. MRV of the brain demonstrates normal appearing superior/inferior sagittal sinuses, straight sinus, transverse sinus, and sigmoid sinus bilaterally without thrombus/filling defect. Impression: 1. Prominent pituitary gland related to . 2. Remaining MRI brain without contrast exam and MRV is negative.
[2018-10-23] MEDS: TYLENOL 325 MG PO PRN ×2 (16:00→20:00)
[2018-10-23 20:16] VITALS: BP 152/77
[2018-10-24 00:05] VITALS: O2SAT 97
[2018-10-24] MEDS: BENADRYL 50 MG/ML IV PRN (01:53)
[2018-10-24] MEDS: Reglan 10 MG/2 ML IV PRN (01:57)
[2018-10-24] MEDS: TYLENOL 325 MG PO PRN (02:01)
[2018-10-24] MEDS: MORPHINE SULFATE 10 MG/ML IV PRN ×2 (02:03→06:16)
[2018-10-24 06:23] VITALS: PULSE 97
--- NOTE | 2018-10-24 06:38 | PCM.DS ---
Discharge Summary Date of Admission: 10/22/18 08:58 Admitting Physician: PAMELA MANZANARES Consults: Consults on Case 10/22/18 19:35 Tele-Health Consult ROUTINE Primary Care Provider: PAMELA MANZANARES Allergies Allergies amoxicillin Allergy (Mild, Verified 10/14/18 18:33) Rash latex Allergy (Mild, Verified 10/14/18 18:33) Hospital Summary - Hospital Course Hospital Course: patient was admitted with severe headache, has been treated and doing much better at this time. she is now tolerating po intake, MRI showed nothing acute. she is anxious about her surgery but would like to go home and be with her family today prior to coming back tomorrow - Vitals & Intake/Output Vital Signs: Vital Signs Temperature 98.2 F 10/24/18 06:20 Pulse Rate 97 H 10/24/18 06:20 Respiratory Rate 20 10/24/18 06:20 Blood Pressure 152/77 10/24/18 00:00 O2 Sat by Pulse Oximetry 97 10/24/18 00:00 Intake & Output: Intake & Output 10/21/18 10/22/18 10/23/18 10/24/18 11:59 11:59 11:59 11:59 Intake Total 4619 Output Total 600 Balance 4019 Weight 263 kg 119.665 kg - Lab Result Diagrams: 10/22/18 06:25 10/22/18 06:25 - Radiology Exams Ordered Rad Exams-Entire Visit: Radiology Procedures Category Date Time Status HEAD WITHOUT CONTRAST [CT] Stat Exams 10/22/18 06:42 Completed MRI BRAIN W/O CONTRAST [MRI] Routine Exams 10/23/18 14:54 Completed Discharge Exam General Appearance: no apparent distress, alert Neurologic Exam: alert, oriented x 3 Respiratory Exam: normal breath sounds, lungs clear, No respiratory distress Cardiovascular Exam: regular rate/rhythm, normal heart sounds Gastrointestinal/Abdomen Exam: soft, other (gravid), No tenderness, No guarding , No rebound Extremity Exam: normal inspection, normal range of motion Skin Exam: normal color, warm, dry Final Diagnosis/Problem List - Final Discharge Diagnosis/Problem (1) Headache Current Visit: Yes Status: Acute Code(s): R51 - HEADACHE (2) Current Visit: No Status: Acute Code(s): Z34.90 - ENCNTR FOR SUPRVSN OF NORMAL , UNSP, UNSP TRIMESTER (3) History of delivery Current Visit: Yes Status: Acute Code(s): Z98.891 - HISTORY OF UTERINE SCAR FROM PREVIOUS SURGERY - Discharge Disposition: Home, Self-Care Condition: Stable Prescriptions: Continue Cephalexin Mh 500 mg [Keflex 500 mg] 500 mg PO BID
== END 2018-10-24 07:30 | disposition home or self-care (01) ==
LOC: ED 06:08 → OB 08:58
PROVIDERS: ADMIT Family Medicine; ATTEND Family Medicine
DX: O26.893 Other specified pregnancy related conditions, third trimester (principal); Z3A.38 38 weeks gestation of pregnancy; G44.52 New daily persistent headache (NDPH); J32.9 Chronic sinusitis, unspecified
CPT/HCPCS: 36000; 36415; 70450; 70551; 80053; 80307; 81001; 85025; 96360; 96365; 96374; 96375; 96376; 99285; G0378; Q3014; J0696; J1100; J1200; J2270; J2405; J2550; J3475; A9270-GY

== ENCOUNTER 2018-10-25 04:10 | Inpatient (IN) | payer OTHER ==
[~2018-10-25 04:10] MED LIST: Anucort-HC SUPPOSITORY PR PRN; BENADRYL 50 MG/ML IV PRN; BICITRA 30 ML CUP PO SCH; CORTISONE 1% CREAM TP PRN; DEMEROL 50 MG IV PRN; Dermoplast Spray TP PRN; Dulcolax 10 MG SUPP PR PRN; HOLD NARCOTIC ANALGESICS AND SEDATIVES X24 HR MC PRN; LANSINOH 40 GM TOP PRN; Lactated Ringers 1,000 ML IV ONE; Lactated Ringers 1,000 ML IV SCH; MORPHINE SULFATE 2 MG INJ IV PRN; Mylicon 80MG PO PRN; Narcan 0.4 MG/ML IV PRN; Nubain 10 MG/ML IV PRN; Pepcid 20 MG VIAL IV SCH; Reglan 10 MG/2 ML IV SCH; TUCKS TP PRN; Zofran 4 MG/2 ML VIAL IV PRN
[2018-10-25 04:48] LABS: Hemoglobin 10.9 gm/dl (12.0-16.0); Mean Corpuscular Hgb Concent. 32.1 g/dl (32-36); Mean Platelet Volume 8.4 fl (6-9.5); Platelet Count 378 K/mm3 (150-450); White Blood Count 12.1 K/mm3 (4.0-10.5)
[2018-10-25 04:50] LABS: Mean Corpuscular Hemoglobin 27.2 pg (26-32)
[2018-10-25 04:55] LABS: INR 0.99 (0.8-3.0); PROTIME 11.2 SECONDS (9.95-12.35)
[2018-10-25 04:57] LABS: Appearance CLEAR (CLEAR); Bacteria FEW /HPF (NEGATIVE); Bilirubin NEGATIVE (NEGATIVE); Blood NEGATIVE Ery/ul (0-5); Epithelial Cells RARE /HPF (FEW); Glucose NEGATIVE (NEGATIVE); Ketones NEGATIVE (NEGATIVE); Leukocyte Esterase NEGATIVE (NEGATIVE); Nitrite NEGATIVE (NEGATIVE); Protein,Urine Dip NEGATIVE (Negative); RBC 0-2 /HPF (0-2); Specific Gravity 1.011 (1.005-1.025); Urobilinogen NEGATIVE mg/dL (0-1); WBC 0-2 /HPF (0-5)
[2018-10-25 04:58] LABS: PTT 26.3 SECONDS (25.3-37.0)
[2018-10-25] MEDS ORDERED: CLINDAMYCIN-D5W 900 MG/50 ML*** 900 MG/50 ML BAG IV SCH (05:00)
[2018-10-25 05:06] LABS: Amphetamine,Urine NEGATIVE (NEGATIVE); Barbiturate,Urine NEGATIVE (NEGATIVE); Benzodiazepine,Urine NEGATIVE (NEGATIVE); Cocaine,Urine NEGATIVE (NEGATIVE); Methadone,Urine NEGATIVE (NEGATIVE); Opiate,Urine POSITIVE (NEGATIVE); PCP,Urine NEGATIVE (NEGATIVE); THC,Urine NEGATIVE (NEGATIVE)
[2018-10-25 05:26] LABS: ABO TYPING A; Antibody Screen POSITIVE (NEGATIVE); RH TYPING NEGATIVE
[2018-10-25] MEDS ORDERED: Astramorph-Pf 5 MG/10 ML ONE (07:17)
[2018-10-25] MEDS ORDERED: PHENYLEPHRINE HCL ONE (07:19)
[2018-10-25] MEDS ORDERED: Pitocin 10 UNITS/ML ONE ×2 (07:20→07:54)
[2018-10-25] MEDS ORDERED: Xylocaine-Mpf 2% 5 Ml Vial ONE (07:34)
[2018-10-25] MEDS ORDERED: Marcaine Spinal Ampul IJ ONE (07:35)
[2018-10-25] MEDS ORDERED: DEMEROL 50 MG ONE (08:53)
[2018-10-25] MEDS ORDERED: MARCAINE 0.5%-EPI 1:200,000 VL IJ ONE (09:46)
[2018-10-25 09:55] LABS: Appearance CLEAR (CLEAR); Bilirubin NEGATIVE (NEGATIVE); Blood NEGATIVE Ery/ul (0-5); Glucose NEGATIVE (NEGATIVE); Ketones SMALL (NEGATIVE); Leukocyte Esterase NEGATIVE (NEGATIVE); Mucus SLIGHT /HPF (NEGATIVE); Nitrite NEGATIVE (NEGATIVE); Protein,Urine Dip NEGATIVE (Negative); Specific Gravity 1.016 (1.005-1.025); Urobilinogen NEGATIVE mg/dL (0-1)
[2018-10-25] MEDS ORDERED: FERREX 150 PO SCH (10:00)
[2018-10-25] MEDS: CLARITIN 10 MG PO PRN (10:16)
--- NOTE | 2018-10-25 10:39 | OP ---
SURGERY DATE/TIME: 10/25/2018 0721 PREOPERATIVE DIAGNOSES: 1) History of prior section. 2) Term intrauterine . 3) Desires permanent sterilization. POSTOPERATIVE DIAGNOSES: 1) History of prior section. 2) Term intrauterine . 3) Desires permanent sterilization. PROCEDURES: 1) Repeat low transverse section. 2) Bilateral tubal ligation. SURGEON: Florian Vargas M.D. ESTIMATED BLOOD LOSS: 400 cc. IV FLUIDS: 1300 cc of crystalloid. URINE OUTPUT: 100 cc of clear straw-colored urine. ANESTHESIA: Spinal by Moshe Macdonald CRNA. SPECIMENS: Bilateral fallopian tube segments. DESCRIPTION OF PROCEDURE: After informed written consent was obtained, the patient was taken to the operating room. She underwent spinal anesthesia and was prepped and draped in the usual sterile fashion. Next, the skin was incised in horizontal fashion and extended carried down through the subcutaneous fat to the level of the fascia. The fascia was nicked on both sides of the midline and extended in horizontal fashion using curved Meléndez scissors. The superior edge of the fascia was grasped with Christiano clamps and the underlying rectus muscles were dissected free. The same was repeated in the inferior aspect. The peritoneal cavity was opened bluntly and extended in horizontal fashion. Bladder flap was then created and reflected over the lower uterine segment. The horizontal uterine incision was made by knife and carried down to the level of the amniotic membranes which were carefully artificially ruptured. A viable female was delivered from the vertex presentation with a strong cry immediately upon delivery. Oropharynx and nares bulb suctioned free. Cord was clamped and cut and she was handed off to the awaiting nursery team. Placenta was manually extracted and uterus exteriorized. Uterine cavity was sponge curetted clean with moist lap sponge. The uterine incision was closed with #1 chromic in a running locked fashion. A single layer was used to provide good closure and good hemostasis, figure-of-8 were placed in the left lateral aspect of the incision in a small area of oozing with good control. The left fallopian tube was identified and carried down to the fimbrial edge. It was grasped with a Qi and electrocautery used to make a window in the mesoappendix. The proximal and distal tube segments were then ligated with chromic tie and the interceding tube segment was dissected free with Metzenbaum scissors. The free edge of the tube was identified and cauterized with electrocautery. The same was repeated on the right side with no complications. The posterior cul-de-sac was wiped free of blood and clot with a moist lap sponge and then the uterus was returned to the peritoneal cavity. Lateral gutters were wiped free of blood and clot. Again, the uterine incision was inspected at that point and noted to be hemostatic with good closure. Next, the fascia was closed with 0 Vicryl in a running fashion with good closure and good hemostasis were achieved. Subcutaneous fat was irrigated with warm, sterile saline. Finally, the skin layer was closed with 4-0 undyed Vicryl in subcuticular fashion. Steri-Strips and occlusive dressing were placed over the incision and the patient was transferred to the recovery room in good condition. Also of note, the patient had previously signed a consent form which is available on the chart for bilateral tubal ligation. Dated signature was 09/30/2018.
[2018-10-25] MEDS ORDERED: Adacel Vial IM ONE (12:00)
[2018-10-25] MEDS ORDERED: Dextrose 5%-Lr IV Solution 1000 ML 1,000 ML IV SCH (13:00)
[2018-10-25] MEDS: PERCOCET TABLET 5/325MG PO PRN ×3 (15:56→23:59)
[2018-10-25] MEDS: Colace 100 MG PO SCH (20:24)
[2018-10-25] MEDS: MOTRIN 400 MG PO PRN (22:23)
[2018-10-26] MEDS: CLARITIN 10 MG PO PRN (02:41)
[2018-10-26] MEDS ORDERED: Ambien 10 MG PO PRN (02:55)
[2018-10-26] MEDS ORDERED: PERCOCET TABLET 5/325MG ONE (05:08)
[2018-10-26] MEDS: PERCOCET TABLET 5/325MG PO PRN (05:12)
[2018-10-26 05:57] LABS: Hematocrit 30.2 % (35-47); Hemoglobin 9.7 gm/dl (12.0-16.0); Mean Cell Volume 85.3 fl (78-100); Mean Corpuscular Hemoglobin 27.4 pg (26-32); Mean Corpuscular Hgb Concent. 32.1 g/dl (32-36); Mean Platelet Volume 8.6 fl (6-9.5); Platelet Count 329 K/mm3 (150-450); Red Blood Count 3.54 M/mm3 (4.1-5.4); Red Cell Distribution Width 15.1 % (11.5-14.0); White Blood Count 11.3 K/mm3 (4.0-10.5)
[2018-10-26 08:51] VITALS: O2SAT 97
[2018-10-26 08:51] LABS: BAND 1 % (0.0-2.0); Lymphocytes 26 % (24-44); Monocyte 4 % (0.0-12.0); Neutrophils 69 % (36.0-66.0); Platelet Estimate NORMAL (NORMAL); Polychromasia 1+; Total Cells Counted 100; Toxic Granulation 1+
[2018-10-26] MEDS: MOTRIN 400 MG PO PRN ×2 (09:13→16:22)
[2018-10-26] MEDS: NORCO 5/325 MG PO PRN ×4 (09:14→22:14)
[2018-10-26] MEDS: Colace 100 MG PO SCH ×2 (09:14→22:14)
[2018-10-26] MEDS: TYLENOL EXTRA STRENGTH 500 MG PO PRN (20:40)
[2018-10-27] MEDS: MOTRIN 400 MG PO PRN ×2 (00:18→05:54)
[2018-10-27] MEDS: NORCO 5/325 MG PO PRN (03:07)
[2018-10-27] MEDS: TYLENOL EXTRA STRENGTH 500 MG PO PRN (04:18)
--- NOTE | 2018-10-27 07:36 | PCM.DS ---
Discharge Summary Date of Admission: 10/25/18 04:10 Admitting Physician: PAMELA MANZANARES Consults: Consults on Case 10/25/18 02:47 Notify Anesthesia Provider ROUTINE 10/25/18 02:49 Notify Physician OF ADMISSION Primary Care Provider: PAMELA MANZANARES Allergies Allergies amoxicillin Allergy (Mild, Verified 10/25/18 04:31) Rash latex Allergy (Mild, Verified 10/25/18 04:31) Hospital Summary - Hospital Course Hospital Course: born at term via repeat with bilateral tubal ligation - Vitals & Intake/Output Vital Signs: Vital Signs Temperature 98.3 F 10/27/18 02:00 Pulse Rate 86 10/27/18 02:00 Respiratory Rate 18 10/26/18 14:00 Blood Pressure 138/82 10/27/18 02:00 O2 Sat by Pulse Oximetry 97 10/26/18 20:00 Intake & Output: Intake & Output 10/24/18 10/25/18 10/26/18 10/27/18 11:59 11:59 11:59 11:59 Intake Total 2347 Output Total 1000 Balance 1347 Weight 119.295 kg - Lab Result Diagrams: 10/26/18 05:35 Lab Results-Last 24 Hrs: Lab Results-Last 24 Hours 10/26/18 Range/Units 05:35 Segmented Neutrophils 69 H (36.0-66.0) % Band Neutrophils 1 (0.0-2.0) % Lymphocytes (Manual) 26 (24-44) % Monocytes (Manual) 4 (0.0-12.0) % Toxic Granulation 1+ Platelet Estimate NORMAL (NORMAL) RBC Morphology ABNORMAL Polychromasia 1+ Micro Results-Entire Visit: Microbiology 10/25/18 07:40 Urine Culture - Preliminary Clean Catch Midstream NO GROWTH TO DATE - Procedures and Test Procedures and Tests throughout Hospitalization: Therapy Orders & Screens 10/25/18 08:07 Standby Routine Comment: Discharge Exam General Appearance: no apparent distress, alert Eye Exam: PERRL, EOMI, eyes nml inspection Respiratory Exam: normal breath sounds, lungs clear, No respiratory distress Cardiovascular Exam: regular rate/rhythm, normal heart sounds Gastrointestinal/Abdomen Exam: soft, No tenderness, No mass Extremity Exam: normal inspection, normal range of motion Skin Exam: normal color, warm, dry Final Diagnosis/Problem List - Final Discharge Diagnosis/Problem (1) delivery delivered Current Visit: Yes Status: Acute Code(s): O82 - ENCOUNTER FOR DELIVERY WITHOUT INDICATION (2) Tubal ligation status Current Visit: Yes Status: Acute Code(s): Z98.51 - TUBAL LIGATION STATUS - Discharge Disposition: Home, Self-Care Condition: Stable Prescriptions: New Hydrocodone/APAP 5-325 Tab^^^ [Termo 5-325 Tablet^^^] 1 tab PO Q6HPRN PRN # 28 tablet MDD 6 PRN Reason: Pain Continue Acetaminophen [Tylenol] 325 mg PO Q4-6HPRN PRN PRN Reason: Pain Follow up with: PAMELA MANZANARES [Primary Care Provider] - 1 Week
[2018-10-27 09:17] VITALS: BP 134/78; PULSE 84
== END 2018-10-27 09:10 | disposition home or self-care (01) | DRG 785 ==
LOC: UNDOADMIN 04:10 → OB 04:10
PROVIDERS: ADMIT Family Medicine; ATTEND Family Medicine
PROC: 10D00Z1 Extraction of Products of Conception, Low, Open Approach (ICD-10-PCS; principal; 2018-10-25)
PROC: 0U570ZZ Destruction of Bilateral Fallopian Tubes, Open Approach (ICD-10-PCS; 2018-10-25)
DX: O34.211 Maternal care for low transverse scar from previous cesarean delivery (principal); Z3A.39 39 weeks gestation of pregnancy; Z37.0 Single live birth; Z30.2 Encounter for sterilization
CPT/HCPCS: 36000; 36415; 62322; 64488; 70450; 70551; 76942; 80053; 80307; 81001; 85025; 85027; 85610; 85730; 86850; 86870; 86900; 86901; 87086; 87340; 94799; 96360; 96365; 96374; 96375; 96376; 99285; G0378; J0696; J1100; J1200; J2175; J2270; J2274; J2370; J2405; J2550; J2590; J3475; L0625; Q3014; A9270-GY

== ENCOUNTER 2018-11-04 17:36 | Emergency (ER) | payer MEDICAID, OTHER ==
[2018-11-04] MEDS ORDERED: Zofran 4 MG/2 ML VIAL IV ONE (17:52)
[2018-11-04] MEDS ORDERED: Sodium Chloride 0.9% 1000 ML 1,000 ML IV STA (17:52)
[2018-11-04] MEDS ORDERED: SUBLIMAZE 100 MCG/2 ML IV ONE (17:52)
--- NOTE | 2018-11-04 17:58 | ERPHSYRPT ---
- History of Present Illness Historian: patient Exam Limitations: no limitations Patient Subjective Stated Complaint: Pt states "I had a c section on the [address] Vargas. For the past two days my lower abdomen started burning and I am haivng a hard time sitting and walking." Triage Nursing Assessment: Pt alert and oriented X 3, skin pwd. PT ambulates with a waddling shuffling gait, abdomen is bruised, warm to touch, c section incision is intact, pink Timing/Duration: day(s) (2) Activities at Onset: none Quality: burning Abdominal Pain Onset Location: RLQ Pain Radiation: no radiation Severity of Pain-Max: severe Severity of Pain-Current: severe Modifying Factors: Improves With: nothing Associated Symptoms: denies symptoms Previous symptoms: no prior history Hx Tetanus, Diphtheria Vaccination/Date Given: Yes Hx Influenza Vaccination/Date Given: No Hx Pneumococcal Vaccination/Date Given: No Immunizations Up to Date: Yes <MELY ANTOINE - Last Filed: 11/04/18 19:09> <AILYN LAMBERT - Last Filed: 11/04/18 20:11> - History of Present Illness Time Seen by Provider: 11/04/18 17:43 Physician History: Pt underwent on Oct.25 here. She developed "burning" pain in her right lower abdomen, not radiating, denies flank pain, nausea, vomiting, diarrhea, urinary complaints, or severe vaginal bleeding, she is not breast feeding. She contacted her physician today and was instructed to come here. ( MELY ANTOINE) Allergies/Adverse Reactions: amoxicillin Allergy (Mild, Verified 10/25/18 04:31) Rash latex Allergy (Mild, Verified 10/25/18 04:31) - Review of Systems Constitutional: No Symptoms Ears, Nose, & Throat: No Symptoms Respiratory: No Symptoms Cardiac: No Symptoms Abdominal/Gastrointestinal: Abdominal Pain Genitourinary Symptoms: No Symptoms Musculoskeletal: No Symptoms Skin: No Symptoms Neurological: No Symptoms All Other Systems: Reviewed and Negative <MELY ANTOINE - Last Filed: 11/04/18 19:09> - Past Medical History Pertinent Past Medical History: No Neurological History: Migraines ENT History: No Pertinent History Cardiac History: No Pertinent History Respiratory History: No Pertinent History Endocrine Medical History: No Pertinent History Musculoskeletal History: Fractures GI Medical History: Pancreatitis History: No Pertinent History Psycho-Social History: Depression Female Reproductive Disorders: No Pertinent History Other Medical History: preeclampsia, fx rt foot - Past Surgical History Past Surgical History: Yes Neuro Surgical History: No Pertinent History Cardiac: No Pertinent History Respiratory: No Pertinent History Gastrointestinal: No Pertinent History Genitourinary: No Pertinent History Musculoskeletal: No Pertinent History Female Surgical History: Section Other Surgical History: c section - Social History Smoking Status: Current every day smoker How long have you smoked: years Exposure to second hand smoke: Yes Alcohol Use: Socially Drug Use: none Patient Lives Alone: No Significant Family History: no pertinent family hx - Female History Hx Last Menstrual Period: 01/07/2018 Hx Now: No () <MELY ANTOINE - Last Filed: 11/04/18 19:09> - Physical Exam General Appearance: no apparent distress Ears, Nose, Throat Exam: normal ENT inspection, pharynx normal, moist mucous membranes Neck Exam: normal inspection, non-tender, supple, No JVD Respiratory Exam: normal breath sounds, lungs clear, airway intact Cardiovascular Exam: regular rate/rhythm, normal heart sounds, normal peripheral pulses, No murmur Gastrointestinal/Abdomen Exam: soft, normal bowel sounds, tenderness (diffuse, right lower abdomen and pelvis), ecchymosis, No distention, No mass, No guarding , No rebound, No hernia, No organomegaly (normal pp/ healed surgical wound, no redness, discharge.) Back Exam: normal inspection, No CVA tenderness, No vertebral tenderness Extremity Exam: normal inspection, No calf tenderness, No carson's sign, No pedal edema Neurologic Exam: alert, oriented x 3, normal mood/affect Skin Exam: normal color, warm, dry, No rash, No petechiae, No jaundice, No diaphoresis Lymphatic Exam: No adenopathy SpO2 Interpretation: normal SpO2: 99 O2 Delivery: Room Air <MELY ANTOINE - Last Filed: 11/04/18 19:09> - Nursing Vital Signs Nursing Vital Signs: Initial Vital Signs Temperature 98.3 F 11/04/18 17:43 Pulse Rate 76 11/04/18 17:43 Respiratory Rate 18 11/04/18 17:43 Blood Pressure 141/91 11/04/18 17:43 O2 Sat by Pulse Oximetry 99 11/04/18 17:43 Pain Scale Pain Intensity 5 Ordered Tests: Active Orders 24 hr Category Date Time Status IV Insertion STAT Care 11/04/18 17:52 Active ABDOMEN AND PELVIS W CONTRAST [CT] Stat Exams 11/04/18 17:53 Taken CBC W DIFF Stat Lab 11/04/18 18:10 Completed CMP Stat Lab 11/04/18 18:10 Completed LIPASE Stat Lab 11/04/18 18:10 Completed Lactic Acid Stat Lab 11/04/18 18:12 Completed Manual Differential NC Stat Lab 11/04/18 18:10 Completed PROTIME WITH INR Stat Lab 11/04/18 18:10 Completed UA W/RFX UR CULTURE Stat Lab 11/04/18 19:19 Ordered Medication Summary Discontinued Medications Generic Name Dose Route Start Last Admin Trade Name Freq PRN Reason Stop Dose Admin Hydrocodone Bitart/Acetaminophen 2 tab 11/04/18 20:06 [place] 5/325 Mg PO 11/04/18 20:07 STAT ONE Clindamycin HCl 300 mg 11/04/18 20:05 Cleocin 150 Mg Capsule PO 11/04/18 20:06 STAT ONE Fentanyl Citrate 50 mcg 11/04/18 17:52 11/04/18 18:12 Sublimaze 100 Mcg/2 Ml IV 11/04/18 17:53 50 mcg STAT ONE Administration Fentanyl Citrate Confirm 11/04/18 18:07 Sublimaze 100 Mcg/2 Ml Administered 11/04/18 18:08 Dose 100 mcg .ROUTE .STK-MED ONE Sodium Chloride 1,000 mls @ 999 mls/hr 11/04/18 17:52 11/04/18 19:22 Sodium Chloride 0.9% 1000 Ml IV 11/04/18 18:52 Infused .Q1H1M STA Infusion Sodium Chloride Confirm 11/04/18 18:07 Sodium Chloride 0.9% 1000 Ml Administered 11/04/18 18:08 Dose 1,000 mls @ ud .ROUTE .STK-MED ONE Ondansetron HCl 4 mg 11/04/18 17:52 11/04/18 18:11 Zofran 4 Mg/2 Ml Vial IV 11/04/18 17:53 4 mg STAT ONE Administration Ondansetron HCl Confirm 11/04/18 18:06 Zofran 4 Mg/2 Ml Vial Administered 11/04/18 18:07 Dose 4 mg .ROUTE .STK-MED ONE Lab/Rad Data: Laboratory Result Diagrams 11/04/18 18:10 11/04/18 18:10 Laboratory Results 11/04/18 11/04/18 11/04/18 Range/Units 18:12 18:10 18:10 WBC (4.0-10.5) K/mm3 RBC (4.1-5.4) M/mm3 Hgb (12.0-16.0) gm/dl Hct (35-47) % MCV (78-100) fl MCH (26-32) pg MCHC (32-36) g/dl RDW (11.5-14.0) % Plt Count (150-450) K/mm3 MPV (6-9.5) fl PT 11.7 (9.95-12.35) SECONDS INR 1.03 (0.8-3.0) Sodium 139 (137-145) mmol/L Potassium 3.9 (3.5-5.1) mmol/L Chloride 107 (98-107) mmol/L Carbon Dioxide 24 (22-30) mmol/L Anion Gap 11.3 (5-15) MEQ/L BUN 17 (7-17) mg/dL Creatinine 0.73 (0.52-1.04) mg/dL Estimated GFR > 60.0 ML/MIN Glucose 92 (74-106) mg/dL Lactic Acid 0.7 (0.4-2.0) Calcium 9.5 (8.4-10.2) mg/dL Total Bilirubin 0.30 (0.2-1.3) mg/dL AST 32 (14-36) U/L ALT 62 H (0-35) U/L Alkaline Phosphatase 58 (38-126) U/L Serum Total Protein 7.3 (6.3-8.2) g/dL Albumin 3.8 (3.5-5.0) g/dL Lipase 183 (23-300) U/L 11/04/18 Range/Units 18:10 WBC 9.2 (4.0-10.5) K/mm3 RBC 4.42 (4.1-5.4) M/mm3 Hgb 11.8 L (12.0-16.0) gm/dl Hct 37.3 (35-47) % MCV 84.4 (78-100) fl MCH 26.6 (26-32) pg MCHC 31.6 L (32-36) g/dl RDW 14.9 H (11.5-14.0) % Plt Count 504 H (150-450) K/mm3 MPV 8.5 (6-9.5) fl PT (9.95-12.35) SECONDS INR (0.8-3.0) Sodium (137-145) mmol/L Potassium (3.5-5.1) mmol/L Chloride (98-107) mmol/L Carbon Dioxide (22-30) mmol/L Anion Gap (5-15) MEQ/L BUN (7-17) mg/dL Creatinine (0.52-1.04) mg/dL Estimated GFR ML/MIN Glucose (74-106) mg/dL Lactic Acid (0.4-2.0) Calcium (8.4-10.2) mg/dL Total Bilirubin (0.2-1.3) mg/dL AST (14-36) U/L ALT (0-35) U/L Alkaline Phosphatase (38-126) U/L Serum Total Protein (6.3-8.2) g/dL Albumin (3.5-5.0) g/dL Lipase (23-300) U/L <MELY ANTOINE - Last Filed: 11/04/18 19:09> - Progress Progress: improved <AILYN LAMBERT - Last Filed: 11/04/18 20:11> - Progress Progress Note: 11/04/18 19:57 28-year-old white female status post on October 25, 2018 she states she' s been having burning and pain in the suprapubic and right lower abdomen for 2 days no fevers denies other complaints patient initially seen by Dr. Antoine Patient was normal white count of 9.2 hemoglobin 11.8 hematocrit 37.3 platelets 504 Chemistries normal Vitals are stable CT of the abdomen and pelvis with contrast, compared to October 30, 2016. Enlarged uterus from recent . Abdomen subcutaneous incisional fluid collection measuring 18 cm in diameter and 3.4 cm in thickness either postop hematoma, seroma versus abscess. There nonobstructing left renal micrococcus The patient's abdomen is not hot there is some erythema along the right lateral abdomen . Will discuss case with Dr. Vargas or [employer] physician formation testing operator for Dr. Vargas 11/04/18 20:07 Patient without signs of infection. I discussed the patient case with Dr. Vargas he requests that we go ahead and place patient on clindamycin 300 mg orally 3 times a day for 10 days. Will go ahead and place patient on [place] as well for pain. Patient to contact Dr. Vargas's office tomorrow for followup. (AILYN LAMBERT) <MELY ANTOINE - Last Filed: 11/04/18 19:09> - Departure Departure Disposition: Home Critical Care Time: No <AILYN LAMBERT - Last Filed: 11/04/18 20:11> - Departure Clinical Impression: Seroma complicating a procedure, Status post Abdominal pain Qualifiers: Abdominal location: unspecified location Qualified Code(s): R10.9 - Unspecified abdominal pain Condition: Fair Referrals: PAMELA MANZANARES [Primary Care Provider] - Additional Instructions: Return home. Cool packs to area 24-48 hours. Clindamycin 300 mg orally 3 times a day for 10 days. [place] 5/325 one orally every 4 hours as needed for pain. Followup with Dr. Vargas call tomorrow to arrange followup sooner if problems. Return for acute distress severe symptoms or for any problems. Prescriptions: Hydrocodone/APAP 5-325 Tab^^^ [[place] 5-325 Tablet^^^] 1 each PO Q4HPRN PRN #12 tablet MDD 6 PRN Reason: abdominal pain Clindamycin HCl 300 mg PO TID #30 capsule
[2018-11-04] MEDS ORDERED: Zofran 4 MG/2 ML VIAL ONE (18:06)
[2018-11-04] MEDS ORDERED: Sodium Chloride 0.9% 1000 ML 1,000 ML ONE (18:07)
[2018-11-04] MEDS ORDERED: SUBLIMAZE 100 MCG/2 ML ONE (18:07)
[2018-11-04 18:31] LABS: Hematocrit 37.3 % (35-47); Hemoglobin 11.8 gm/dl (12.0-16.0); Mean Cell Volume 84.4 fl (78-100); Mean Corpuscular Hgb Concent. 31.6 g/dl (32-36); Mean Platelet Volume 8.5 fl (6-9.5); Platelet Count 504 K/mm3 (150-450); Red Blood Count 4.42 M/mm3 (4.1-5.4); Red Cell Distribution Width 14.9 % (11.5-14.0); White Blood Count 9.2 K/mm3 (4.0-10.5)
[2018-11-04 18:32] LABS: Mean Corpuscular Hemoglobin 26.6 pg (26-32)
[2018-11-04 18:38] LABS: INR 1.03 (0.8-3.0); PROTIME 11.7 SECONDS (9.95-12.35)
[2018-11-04 18:43] LABS: ALBUMIN 3.8 g/dL (3.5-5.0); ALKALINE PHOSPHATASE 58 U/L (38-126); ANION GAP 11.3 MEQ/L (5-15); BLOOD UREA NITROGEN 17 mg/dL (7-17); CHLORIDE 107 mmol/L (98-107); Calcium 9.5 mg/dL (8.4-10.2); Carbon Dioxide 24 mmol/L (22-30); Creatinine 1 0.73 mg/dL (0.52-1.04); Glucose 92 mg/dL (74-106); LIPASE 183 U/L (23-300); Potassium 3.9 mmol/L (3.5-5.1); SGOT/AST 32 U/L (14-36); SGPT/ALT 62 U/L (0-35); SODIUM 139 mmol/L (137-145); Total Protein 7.3 g/dL (6.3-8.2)
[2018-11-04] MEDS ORDERED: CLEOCIN 150 MG CAPSULE PO ONE (20:05)
[2018-11-04] MEDS ORDERED: NORCO 5/325 MG PO ONE ×2 (20:06→20:12)
[2018-11-04] MEDS ORDERED: NORCO 5/325 MG ONE ×2 (20:12→20:19)
[2018-11-04] MEDS ORDERED: CLEOCIN 150 MG CAPSULE ONE (20:12)
[2018-11-04 20:18] LABS: Appearance SLIGHTLY CLOUDY (CLEAR); Bacteria RARE /HPF (NEGATIVE); Bilirubin NEGATIVE (NEGATIVE); Blood NEGATIVE Ery/ul (0-5); Epithelial Cells MODERATE /HPF (FEW); Glucose NEGATIVE (NEGATIVE); Ketones NEGATIVE (NEGATIVE); Leukocyte Esterase NEGATIVE (NEGATIVE); Mucus MODERATE /HPF (NEGATIVE); Nitrite NEGATIVE (NEGATIVE); Protein,Urine Dip NEGATIVE (Negative); Specific Gravity 1.042 (1.005-1.025); Urobilinogen NEGATIVE mg/dL (0-1)
[2018-11-04 20:24] VITALS: BP 130/71; PULSE 54; O2SAT 97
[2018-11-04 23:14] LABS: Basophil 1 % (0.0-1.0); Eosinophil 1 % (0.00-3.0); Lymphocytes 34 % (24-44); Monocyte 6 % (0.0-12.0); Neutrophils 58 % (36.0-66.0); Total Cells Counted 100
[2018-11-04 23:15] LABS: ANISOCYTOSIS 2+; Hypochromia 1+; Platelet Estimate NORMAL (NORMAL); Poikilocytosis 1+; Toxic Granulation 2+
--- NOTE | 2018-11-05 08:41 | XRAY ---
Indication: Right abdominal pain. Status post section 10 days. Multiple contiguous axial images obtained through the abdomen and pelvis using 80 cc Isovue 370 contrast only. Comparison: October 30, 2016. Lung bases are clear of infiltrates and effusion. Heart is not enlarged. Uterus is enlarged consistent with recent gravid status. Lower abdominal wall demonstrates deep subcutaneous incisional fluid collection measuring 18 cm in diameter and 3.4 cm in thickness with surrounding stranding either postoperative hematoma, seroma, or abscess. No ventral or inguinal hernias. Noncontrasted stomach and bowel loops appear nonobstructed. Normal appendix. No free fluid/air. New nonobstructing punctate left renal calculus. Remaining liver, gallbladder, pancreas, spleen, adrenal glands, kidneys, ureters, bladder, and aorta appear unremarkable. No pathologic retroperitoneal lymphadenopathy. Osseous structures intact. Impression: 1. Lower abdominal wall subcutaneous incisional fluid collection as detailed either postoperative hematoma, seroma, or abscess. 2. Enlarged uterus consistent with recent . 3. New nonobstructing left renal micro-calculus. CT DI 23.63
== END 2018-11-04 20:41 | disposition home or self-care (01) ==
LOC: ED 17:36
DX: O90.2 Hematoma of obstetric wound (principal); R10.9 Unspecified abdominal pain
CPT/HCPCS: 36415; 74177; 80053; 81001; 83605; 83690; 85025; 85610; 96360; 96374; 96375; 99284; J2405; J3010; A9270-GY

== ENCOUNTER 2018-11-09 12:43 | Emergency (ER) | payer OTHER | END 2018-11-09 15:35 | disposition home or self-care (01) | LOC: ED 12:43 ==

== ENCOUNTER 2020-03-12 04:53 | Emergency (ER) | payer OTHER ==
[2020-03-12 05:07] VITALS: BP 140/99; PULSE 68; O2SAT 97
[2020-03-12] MEDS ORDERED: Inapsine 5 MG/2 ML IV ONE (05:16)
[2020-03-12] MEDS ORDERED: Sodium Chloride 0.9% 1000 ML 1,000 ML IV STA (05:16)
[2020-03-12] MEDS ORDERED: BENADRYL 50 MG/ML IV ONE (05:16)
[2020-03-12] MEDS ORDERED: TORAdol 30 mg Injection IV ONE (05:17)
[2020-03-12] MEDS ORDERED: BENADRYL 50 MG/ML ONE (05:20)
[2020-03-12] MEDS ORDERED: Sodium Chloride 0.9% 1000 ML 1,000 ML ONE (05:20)
[2020-03-12] MEDS ORDERED: TORAdol 30 mg Injection ONE (05:20)
[2020-03-12] MEDS ORDERED: Inapsine 5 MG/2 ML ONE (05:20)
--- NOTE | 2020-03-12 05:28 | ERPHSYRPT ---
- History of Present Illness Time Seen by Provider: 03/12/20 05:12 Source: patient Exam Limitations: no limitations Patient Subjective Stated Complaint: pt states she has been having back pain betwen her shoulder blades for the last few days and worse tonight Triage Nursing Assessment: pt alert and oriented, answers questions approp. pt ambulatory with slow steadyg ait noted. respirations nonlabored. skin warm and dry. pt tearful and restless in bed. grimacing with movement. Physician History: Patient is here with right upper back pain. No falls or trauma. H/o of chronic back pain. She has been doing icy hot and tyenol at home. Location: left upper back Quality: sharp Radiation: into left shoulder Severity: moderate Duration: 3-4 days Timing: gradual Modifying factors/associated signs and symptoms: home tyelnol and icy hot Allergies/Adverse Reactions: amoxicillin Allergy (Mild, Verified 03/12/20 05:07) Rash latex Allergy (Mild, Verified 03/12/20 05:07) Home Medications: No Reportable Medications [No Reported Medications] 03/12/20 [History] Hx Tetanus, Diphtheria Vaccination/Date Given: Yes Hx Influenza Vaccination/Date Given: No Hx Pneumococcal Vaccination/Date Given: No Immunizations Up to Date: Yes Travel Risk - International Travel Have you traveled outside of the country in past 3 weeks: No - Coronavirus Screening Are you exhibiting any of the following symptoms?: No Close contact with a COVID-19 positive Pt in past 14-21 Days: No - Review of Systems Constitutional: No Fever, No Chills Eyes: No Symptoms Ears, Nose, & Throat: No Symptoms Respiratory: No Cough, No Dyspnea Cardiac: No Chest Pain, No Edema, No Syncope Abdominal/Gastrointestinal: No Abdominal Pain, No Nausea, No Vomiting, No Diarrhea Genitourinary Symptoms: No Dysuria Musculoskeletal: Back Pain, No Neck Pain Skin: No Rash Neurological: No Dizziness, No Focal Weakness, No Sensory Changes Psychological: No Symptoms Endocrine: No Symptoms All Other Systems: Reviewed and Negative - Past Medical History Pertinent Past Medical History: No Neurological History: Migraines ENT History: No Pertinent History Cardiac History: No Pertinent History Respiratory History: No Pertinent History Endocrine Medical History: No Pertinent History Musculoskeletal History: Fractures GI Medical History: Pancreatitis History: No Pertinent History Psycho-Social History: Depression Female Reproductive Disorders: No Pertinent History Other Medical History: preeclampsia, fx rt foot - Past Surgical History Past Surgical History: Yes Neuro Surgical History: No Pertinent History Cardiac: No Pertinent History Respiratory: No Pertinent History Gastrointestinal: No Pertinent History Genitourinary: No Pertinent History Musculoskeletal: No Pertinent History Female Surgical History: Section Other Surgical History: c section x2 - Social History Smoking Status: Current every day smoker How long have you smoked: 16years Exposure to second hand smoke: Yes Alcohol Use: Socially Drug Use: none Patient Lives Alone: No Significant Family History: no pertinent family hx - Female History Hx Last Menstrual Period: last month Hx Now: No - Nursing Vital Signs Nursing Vital Signs: Initial Vital Signs Temperature 98.4 F 03/12/20 04:55 Pulse Rate 68 03/12/20 04:55 Respiratory Rate 20 03/12/20 04:55 Blood Pressure 140/99 03/12/20 04:55 O2 Sat by Pulse Oximetry 97 03/12/20 04:55 Pain Scale Pain Intensity 9 - Physical Exam General Appearance: no apparent distress, alert Eye Exam: PERRL/EOMI, eyes nml inspection Ears, Nose, Throat Exam: normal ENT inspection, TMs normal, pharynx normal, moist mucous membranes Neck Exam: normal inspection, non-tender, supple, full range of motion Respiratory Exam: normal breath sounds, lungs clear, No respiratory distress Cardiovascular Exam: regular rate/rhythm, normal heart sounds, normal peripheral pulses Gastrointestinal/Abdomen Exam: soft, normal bowel sounds, No tenderness, No mass Back Exam: normal inspection, normal range of motion, other (Right upper back tenderness. No midline tenderness, no step-offs, deformities.), No CVA tenderness, No vertebral tenderness Extremity Exam: normal inspection, normal range of motion, pelvis stable Neurologic Exam: alert, oriented x 3, cooperative, normal mood/affect, nml cerebellar function, nml station & gait, sensation nml, No motor deficits Skin Exam: normal color, warm, dry, No rash Lymphatic Exam: No adenopathy SpO2: 97 Comments: 03/12/20 05:25 No trismus, able to fully extend neck, normal range of motion of neck without pain. Uvula is midline, no swelling of the mouth, noraml oropharynx. No exudate, no signs of meningitis, no floor of mouth swelling, no hot potato voice on exam. No buccal swelling, no gum bleeding, no signs of tooth abscess/infection. No obvious deformity, sensation intact, 2+ capillary refill, 2 point tactile discrimination intact. 5 out of 5 strength. Full range of motion without pain. Compartments are soft, nontender. Overlying skin shows no tenting, bruising, ecchymosis. - Course Nursing assessment & vital signs reviewed: Yes EKG Interpreted by Me: Sinus Rhythm Ordered Tests: Active Orders 24 hr Category Date Time Status Investigation Lieutenant STAT Care 03/12/20 05:17 Active EKG-ER Only STAT Care 03/12/20 05:16 Active IV Insertion STAT Care 03/12/20 05:16 Active ABDOMEN AND PELVIS W CONTRAST [CT] Stat Exams 03/12/20 05:24 Ordered CHEST WITH CONTRAST [CT] Stat Exams 03/12/20 05:16 Ordered CBC W DIFF Stat Lab 03/12/20 05:16 Completed CMP Stat Lab 03/12/20 05:16 Ordered D-DIMER QUANTITATIVE Stat Lab 03/12/20 05:16 Completed HCG QUALITATIVE,SERUM Stat Lab 03/12/20 Ordered LIPASE Stat Lab 03/12/20 05:16 Ordered NT PRO BNP Stat Lab 03/12/20 05:16 Ordered TROPONIN Q3H Lab 03/12/20 05:30 Ordered TROPONIN Q3H Lab 03/12/20 08:30 Ordered TROPONIN Q3H Lab 03/12/20 11:30 Ordered TROPONIN Q3H Lab 03/12/20 14:30 Ordered TROPONIN Q3H Lab 03/12/20 17:30 Ordered Medication Summary Generic Name Dose Route Start Last Admin Trade Name Freq PRN Reason Stop Dose Admin Sodium Chloride 1,000 mls @ 999 mls/hr 03/12/20 05:16 03/12/20 05:25 Sodium Chloride 0.9% 1000 Ml IV 03/12/20 06:16 999 mls/hr .Q1H1M STA Administration Discontinued Medications Generic Name Dose Route Start Last Admin Trade Name Freq PRN Reason Stop Dose Admin Diphenhydramine HCl 25 mg 03/12/20 05:16 03/12/20 05:24 Benadryl 50 Mg/Ml IV 03/12/20 05:17 25 mg STAT ONE Administration Diphenhydramine HCl Confirm 03/12/20 05:20 Benadryl 50 Mg/Ml Administered 03/12/20 05:21 Dose 50 mg .ROUTE .STK-MED ONE Droperidol 1.25 mg 03/12/20 05:16 03/12/20 05:27 Inapsine 5 Mg/2 Ml IV 03/12/20 05:17 1.25 mg STAT ONE Administration Droperidol Confirm 03/12/20 05:20 Inapsine 5 Mg/2 Ml Administered 03/12/20 05:21 Dose 5 mg .ROUTE .STK-MED ONE Sodium Chloride Confirm 03/12/20 05:20 Sodium Chloride 0.9% 1000 Ml Administered 03/12/20 05:21 Dose 1,000 mls @ ud .ROUTE .STK-MED ONE Ketorolac Tromethamine 30 mg 03/12/20 05:17 03/12/20 05:27 Toradol 30 Mg Injection IV 03/12/20 05:18 30 mg STAT ONE Administration Ketorolac Tromethamine Confirm 03/12/20 05:20 Toradol 30 Mg Injection Administered 03/12/20 05:21 Dose 30 mg .ROUTE .STK-MED ONE Lab/Rad Data: Laboratory Result Diagrams 03/12/20 05:16 Laboratory Results 03/12/20 03/12/20 Range/Units 05:16 05:16 WBC 12.3 H (4.0-10.5) K/mm3 RBC 4.63 (4.1-5.4) M/mm3 Hgb 13.8 (12.0-16.0) gm/dl Hct 41.6 (35-47) % MCV 89.8 (78-100) fl MCH 29.8 (26-32) pg MCHC 33.2 (32-36) g/dl RDW 13.6 (11.5-14.0) % Plt Count 369 (150-450) K/mm3 MPV 9.4 (7.5-11.0) fl Gran % 48.2 (36.0-66.0) % Eos # (Auto) 0.27 (0-0.5) Absolute Lymphs (auto) 5.20 H (1.0-4.6) Absolute Monos (auto) 0.84 (0.0-1.3) Lymphocytes % 42.4 (24.0-44.0) % Monocytes % 6.9 (0.0-12.0) % Eosinophils % 2.2 (0.00-5.0) % Basophils % 0.3 (0.0-0.4) % Absolute Granulocytes 5.91 (1.4-6.9) Basophils # 0.04 (0-0.4) D-Dimer 231 (215-500) ng/mL - Progress Progress: improved Progress Note: 03/12/20 05:26 Differential diagnosis includes gallbladder disease, aortic dissection, pulmonary embolism and STEMI, NSTEMI - We'll obtain basic labs, fluids, EKG, troponin, chest x-ray - EKG shows no ST changes - my read. See full read below. - O2 saturations consistently greater than 95%. -We will obtain a CT scan of the chest abdomen and pelvis looking for any aortic issue, pulmonary embolism, pneumothorax. -Pain control, fluids, nausea meds 03/12/20 05:51 Patient left AGAINST MEDICAL ADVICE before full work-up could be completed. AMA I have reviewed the relevant issues with the patient. They are aware of the suspected diagnosis suggested by limited medical exam : aortic dissection, tension PTX, or pulmonary embolism. Capacity Assessment: Patient demonstrating all four pimentel elements of capacity. The patient demonstrates understanding and appreciation of the relevant information of the nature of their medical condition, as well as the risks, benefits, and treatment alternatives (including non-treatment), consequences of refusing care, and can appropriately communicate a rational reasoning about their choice of care options. Risks and Recommendations: The risks of refusing recommended care that were disclosed and acknowledged by the patient include loss of current lifestyle, permanent mental impairment, and . The recommended medical care being refused has been discussed with the patient and is to stay for continued monitoring, workup, and possible treatment. Discharge Care: The patient understands they are welcome to return to the hospital at any time to receive the recommended care or any other care at any time, regardless of their ability to pay for such care. Discharge instructions were provided to the patient. Discussed with : Ana Maria Counseled pt/family regarding: lab results, diagnosis, need for follow-up - Departure Departure Disposition: AMA Clinical Impression: Back pain Condition: Stable Critical Care Time: No Referrals: PAMELA LAMA [Primary Care Provider] - Instructions: Low Back Pain (DC), Sciatica (DC)
[2020-03-12 05:31] LABS: Absolute Neutrophil Ct (ANC) 5.91 (1.4-6.9); BASOPHIL % 0.3 % (0.0-0.4); Basophil (Absolute #) 0.04 (0-0.4); Eosinophil % 2.2 % (0.00-5.0); Eosinophil (Absolute #) 0.27 (0-0.5); Hematocrit 41.6 % (35-47); Hemoglobin 13.8 gm/dl (12.0-16.0); Lymphocytes % 42.4 % (24.0-44.0); Mean Cell Volume 89.8 fl (78-100); Mean Corpuscular Hemoglobin 29.8 pg (26-32); Mean Corpuscular Hgb Concent. 33.2 g/dl (32-36); Mean Platelet Volume 9.4 fl (7.5-11.0); Monocyte (Absolute #) 0.84 (0.0-1.3); Monocytes % 6.9 % (0.0-12.0); Neutrophil % 48.2 % (36.0-66.0); Platelet Count 369 K/mm3 (150-450); Red Blood Count 4.63 M/mm3 (4.1-5.4); Red Cell Distribution Width 13.6 % (11.5-14.0); White Blood Count 12.3 K/mm3 (4.0-10.5)
[2020-03-12 05:57] LABS: ALBUMIN 4.1 g/dL (3.5-5.0); ALKALINE PHOSPHATASE 34 U/L (38-126); ANION GAP 9.3 MEQ/L (5-15); BLOOD UREA NITROGEN 16 mg/dL (7-17); CHLORIDE 105 mmol/L (98-107); Calcium 9.4 mg/dL (8.4-10.2); Carbon Dioxide 25 mmol/L (22-30); Creatinine 1 0.73 mg/dL (0.52-1.04); EST GLOMERULAR FILTRATION RATE > 60.0 ML/MIN; Glucose 114 mg/dL (74-106); LIPASE 235 U/L (23-300); NT PRO BNP 28.1 pg/mL (0-450); Potassium 3.8 mmol/L (3.5-5.1); SGOT/AST 37 U/L (14-36); SGPT/ALT 79 U/L (0-35); SODIUM 136 mmol/L (137-145); Total Protein 7.2 g/dL (6.3-8.2)
[2020-03-12 06:18] LABS: Slide Review 1 YES
== END 2020-03-12 05:39 | disposition left against medical advice (07) ==
LOC: ED 04:53
DX: M54.9 Dorsalgia, unspecified (principal); M25.512 Pain in left shoulder; Z72.0 Tobacco use; F19.90 Other psychoactive substance use, unspecified, uncomplicated
CPT/HCPCS: 36000; 36415; 80053; 81025; 83690; 83880; 84484; 85025; 85379; 93005; 93041; 96374; 96375; 99284; J1200; J1885

== ENCOUNTER 2022-03-21 17:55 | Emergency (ER) | payer OTHER ==
[2022-03-21 18:49] VITALS: PULSE 106; O2SAT 98
--- NOTE | 2022-03-21 19:01 | ERPHSYRPT ---
- History of Present Illness Time Seen by Provider: 03/21/22 19:00 Source: patient Exam Limitations: no limitations Patient Subjective Stated Complaint: Pt reports the left eye started getting pink on 03/18/22, then bilat eyes have became red/irritated/itch/burn since 02/24 08/14. Complains of burning and pain in the throat since 03/19/22. Triage Nursing Assessment: Ambulates with steady gait. Alert and oriented x3. Respirations easy. Skin W/D/P. Bilat eyes red, clear drainage. Throat red and inflammed. Physician History: This is a 31-year-old obese white female who was having complaints of bilateral eye pain and redness on 03/18/2022 followed by burning pain in her throat on 03/19/2022. There have been individuals that she has been close to that who have had flulike symptoms but nothing is ever been diagnosed. She also has matted eyes bilaterally. Patient has an associated mild cough and body aches. Patient has a history of migraine headache, pancreatitis is a former smoker of cigarettes. Patient states that she has had Rocephin in the past without any problems but she is allergic to amoxicillin and latex. She has no chest pain. She has no shortness of breath. She has no abdominal pain. Timing/Duration: day(s) (3) Severity: moderate Associated Symptoms: cough, No abdominal pain, No shortness of breath, No chest pain Allergies/Adverse Reactions: amoxicillin Allergy (Mild, Verified 03/21/22 18:49) Rash latex Allergy (Mild, Verified 03/21/22 18:49) Hx Tetanus, Diphtheria Vaccination/Date Given: Yes Hx Influenza Vaccination/Date Given: No Hx Pneumococcal Vaccination/Date Given: No Travel Risk - International Travel Have you traveled outside of the country in past 3 weeks: No - Coronavirus Screening Are you exhibiting any of the following symptoms?: Yes Symptoms: Cough: New Onset, Vomiting/Diarrhea, Headaches/Body Aches/Fatigue Close contact with a COVID-19 positive Pt in past 14-21 Days: No - Vaccine Status Have you recieved a Covid-19 vaccination: No - Review of Systems Constitutional: No Symptoms Eyes: Eye Pain (Bilateral), Eye Redness (Bilateral), Other (Matted eyes bilaterally) Ears, Nose, & Throat: Throat Pain Respiratory: Cough, No Dyspnea Cardiac: No Symptoms Abdominal/Gastrointestinal: No Symptoms Genitourinary Symptoms: No Symptoms Musculoskeletal: Arthralgias, Myalgias Skin: No Symptoms Neurological: No Symptoms Psychological: No Symptoms Endocrine: No Symptoms Hematologic/Lymphatic: No Symptoms Immunological/Allergic: No Symptoms All Other Systems: Reviewed and Negative - Past Medical History Pertinent Past Medical History: No Neurological History: Migraines ENT History: No Pertinent History Cardiac History: No Pertinent History Respiratory History: No Pertinent History Endocrine Medical History: No Pertinent History Musculoskeletal History: Fractures GI Medical History: Pancreatitis History: No Pertinent History Psycho-Social History: Depression Female Reproductive Disorders: No Pertinent History Other Medical History: preeclampsia, fx rt foot - Past Surgical History Past Surgical History: Yes Neuro Surgical History: No Pertinent History Cardiac: No Pertinent History Respiratory: No Pertinent History Gastrointestinal: No Pertinent History Genitourinary: No Pertinent History Musculoskeletal: No Pertinent History Female Surgical History: Section Other Surgical History: c section x2 - Social History Smoking Status: Former smoker How long have you smoked: 16years Exposure to second hand smoke: Yes Alcohol Use: Socially Drug Use: none Patient Lives Alone: No Significant Family History: no pertinent family hx - Female History Hx Last Menstrual Period: 03/15/22 Hx Now: No - Nursing Vital Signs Nursing Vital Signs: Initial Vital Signs Temperature 98.2 F 03/21/22 18:39 Pulse Rate 106 H 03/21/22 18:39 Respiratory Rate 17 03/21/22 18:39 Blood Pressure 161/101 03/21/22 18:39 O2 Sat by Pulse Oximetry 98 03/21/22 18:39 Pain Scale Pain Intensity 7 - Physical Exam General Appearance: no apparent distress, alert, anxiety, obese Eye Exam: other (Bilateral conjunctivitis with matted material bilateral eyelids/eyelashes) Ears, Nose, Throat Exam: moist mucous membranes, pharyngeal erythema Neck Exam: normal inspection, non-tender, supple, full range of motion Respiratory Exam: normal breath sounds, lungs clear, airway intact, No chest tenderness, No respiratory distress Cardiovascular Exam: regular rate/rhythm, normal heart sounds, normal peripheral pulses Gastrointestinal/Abdomen Exam: soft, normal bowel sounds, No tenderness Pelvic Exam: not done Rectal Exam: not done Back Exam: normal inspection, normal range of motion, No CVA tenderness, No vert ebral tenderness Extremity Exam: normal inspection, normal range of motion, pelvis stable Neurologic Exam: alert, oriented x 3, cooperative, top frame fitter II-XII nml as tested, normal mood/affect, nml cerebellar function, nml station & gait, sensation nml Skin Exam: normal color, warm, dry Lymphatic Exam: No adenopathy SpO2 Interpretation: normal SpO2: 98 O2 Delivery: Room Air - Course Nursing assessment & vital signs reviewed: Yes Ordered Tests: Medication Summary Discontinued Medications Generic Name Dose Route Start Last Admin Trade Name Freq PRN Reason Stop Dose Admin Hydrocodone Bitart/Acetaminophen 10 ml 03/21/22 19:16 03/21/22 19:29 Hydrocodone/Acetaminophen 5 Ml Udcup PO 03/21/22 19:17 10 ml STAT STA Administration Hydrocodone Bitart/Acetaminophen Confirm 03/21/22 19:24 Hydrocodone/Acetaminophen 5 Ml Udcup Administered 03/21/22 19:25 Dose 10 ml .ROUTE .STK-MED ONE Methylprednisolone Sodium 0 mg 03/21/22 19:16 03/21/22 19:29 Succinate 125 mg/ Sterile IM 03/21/22 19:17 125 mg Water 2 ml STAT ONE Administration Methylprednisolone Sodium Succinate Confirm 03/21/22 19:24 Methylprednis Sod Succ 125 Mg/2 Ml Vial Administered 03/21/22 19:25 Dose 125 mg .ROUTE .STK-MED ONE Sterile Water Confirm 03/21/22 19:23 Water For Injection,Sterile 10 Ml Vial Administered 03/21/22 19:24 Dose 10 ml IJ .STK-MED ONE Lab/Rad Data: Laboratory Results 03/21/22 Range/Units 19:10 Influenza Type A Ag NEGATIVE (NEGATIVE) Influenza Type B Ag NEGATIVE (NEGATIVE) RSV (PCR) NEGATIVE (Negative) SARS-CoV-2 (PCR) NEGATIVE (NEGATIVE) Group A Strep Antibody NOT DETECTED (NEGATIVE) - Departure Departure Disposition: Home Clinical Impression: Bilateral conjunctivitis, Pharyngitis Condition: Stable Critical Care Time: No Referrals: DOCTOR,NO FAMILY [Primary Care Provider] - Follow up/PCP as directed Additional Instructions: Drink plenty fluids. Take your medication as prescribed. Follow-up with your primary care physician for further evaluation and management. Certainly, use 25 to 50 mg Benadryl orally every 6-8 hours for the next 3 days. Prescriptions: Hydrocodone/Acetaminophen [Hydrocodone-Acetamn 7.5-325/15] 10 ml PO Q8H PRN PRN #120 ml MDD 30 ml PRN Reason: Cough Prednisone 10 mg [Deltasone 10 mg] 10 mg PO TID #12 tablet
[2022-03-21] MEDS ORDERED: HYDROCODONE-ACETAMIN 2.5-108/5 ML SOLUTION PO STA (19:16)
[2022-03-21] MEDS ORDERED: solu-MEDROL 125 MG, Sterile H2O 10 ml 2 ML IM ONE ×2 (19:16)
[2022-03-21] MEDS ORDERED: Sterile H2O 10 ml IJ ONE (19:23)
[2022-03-21] MEDS ORDERED: HYDROCODONE-ACETAMIN 2.5-108/5 ML SOLUTION ONE (19:24)
[2022-03-21] MEDS ORDERED: solu-MEDROL ONE (19:24)
[2022-03-21 19:41] LABS: Group A Strep NOT DETECTED (NEGATIVE)
[2022-03-21 19:52] LABS: INFLUENZA A NEGATIVE (NEGATIVE); INFLUENZA B NEGATIVE (NEGATIVE); RESPIRATORY SYNCTIAL VIRUS NEGATIVE (Negative); SARS-CoV-2 Xpert Express NEGATIVE (NEGATIVE)
[2022-03-21 19:54] VITALS: BP 143/89
== END 2022-03-21 20:17 | disposition home or self-care (01) ==
LOC: ED 17:55
DX: H10.9 Unspecified conjunctivitis (principal); J02.9 Acute pharyngitis, unspecified; R05.9 Cough, unspecified; M79.10 Myalgia, unspecified site; Z28.310 Unvaccinated for COVID-19; Z79.891 Long term (current) use of opiate analgesic; Z79.52 Long term (current) use of systemic steroids
CPT/HCPCS: 0241U; 87651; 96372; 99283; J2930; A9270-GY